=== PATIENT | female | born 1950 | race Caucasian/White ===

== ENCOUNTER 2019-06-24 00:05 | Inpatient (IN) ==
[2019-06-24] MEDS ORDERED: diazePAM 5 MG TABLET PO ONE (04:50)
[2019-06-24] MEDS ORDERED: Naloxone 0.4 MG/ML INJ IVP PRN (09:43)
[2019-06-24] MEDS ORDERED: Dextrose Gel 15 GM/37.5 ML TUBE PO PRN ×2 (09:51)
[2019-06-24] MEDS ORDERED: D5% in Water 1,000 ML IVC PRN (09:51)
[2019-06-24] MEDS ORDERED: *HR* Dextrose 50 % in Water (Syg) 50 ML SYRINGE IVP PRN (09:51)
--- NOTE | 2019-06-24 10:14 | Internal Med History&Physical ---
Date of Encounter: 06/24/19 Time of Encounter: 08:00 Internal Medicine - H&P: HPI Chief complaint: weakness History of present illness: Ms. Tobias is a 69 year old female with a PMHx of CAD s/p CABG (2007), DM2 with peripheral neuropathy, HTN and OA. She was transferred to our facility from [place] for a neurological assessment on account of weakness. Patient states that she went to see her chiropractor yesterday and developed intense muscle spasms and difficulty walking after placement of the TENS unit on her back and shoulders. 911 was called and patient was sent to [facility]. She states that prior to this she has been swimming regularly at her sister's ho use to help with weight loss and improve her A1c. She is scheduled for a right total knee replacement but surgery has been held until her A1c is below 8. Patient states she has had 2 falls in the last 2 weeks mostly related to loss of sensation in her feet and her right knee buckling from under her. She denies chest pain, shortness of breath, palpitations and lightheadedness when she rises from a seated position. Past Med Surg Social Fam HX - Past Medical History Medical history: coronary artery disease (s/p CABG in 2007), diabetes, hypertension Psychiatric history: no psych history - Past Surgical History Additional surgical history: Foot, sweat gland, - Social History Smoking Status: Never smoker Smokeless Tobacco Status: No Alcohol use: none Drug use: none - Family History Sister Name: Nini Age: 69 Family Member Ethnicity: Non- Twin of Family Member: Yes, Identical Living Status: Still Living Hx Family Cancer: Yes (Skin) Hx Family Endocrine Disorder: Yes (Diabetes) Hx Family Autoimmune Disorders: Yes (CREST disease) Internal Medicine - H&P: Meds Aspirin [Lo-Dose Aspirin EC] 81 mg PO DAILY 06/23/19 [History] Atorvastatin Calcium [Lipitor] 40 mg PO DAILY 06/23/19 [History] Baclofen [Lioresal] 10 mg PO BID 06/23/19 [History] Calcium Carbonate [Calcium] 600 mg PO DAILY 06/23/19 [History] Cholecalciferol (Vitamin D3) [Vitamin D] 5,000 unit PO DAILY 06/23/19 [History] Docusate Sodium [Stool Softener] 100 mg PO DAILY 06/23/19 [History] Furosemide [Lasix] 20 mg PO DAILY 06/23/19 [History] Insulin ASPART [Novolog Flexpen] 0 unit SQ TID PRN 06/23/19 [History] Insulin ASPART [Novolog Flexpen] 8 unit SQ TID 06/23/19 [History] Insulin Glargine,Hum.rec.anlog [Lantus Solostar] 50 unit SQ BID 06/23/19 [History] Levothyroxine Sodium [Levoxyl] 50 mcg PO DAILY 06/23/19 [History] Lisinopril/Hydrochlorothiazide [Lisinopril-Hctz 20-25 mg Tab] 1 each PO DAILY 06/23/19 [History] Meloxicam [Mobic] 15 mg PO DAILY 06/23/19 [History] Metformin HCl [Fortamet] 1,000 mg PO BID 06/23/19 [History] Metoprolol Succinate [Kapspargo Sprinkle] 100 mg PO DAILY 06/23/19 [History] Nystatin Cream [Mycostatin Cream] 1 appl TP BID 06/23/19 [History] Potassium Chloride [K-Tab ER] 20 meq PO DAILY 06/23/19 [History] Triamcinolone Acet 0.1% CRM [Kenalog] 1 appl TP BID 06/23/19 [History] Vitamin E 400 unit PO DAILY 06/23/19 [History] Allergy/AdvReac Type Severity Reaction Status Date / Time adhesive tape Allergy Rash Verified 06/23/19 19:18 lidocaine Allergy Rash Verified 06/23/19 19:18 Procaine [From Novocain] Allergy Rash Verified 06/23/19 19:18 All Systems PM: A 10-system review of systems was performed and is negative for pertinent findings except as documented above in the HPI. Review of systems: GENERAL: No fatigue, no fever, no chills HEENT: No rhinorrhea, No sore throat, No ear pain or discharge, No dysphagia or odynophagia PULMONARY: No cough, No chest pain, No Sputum production, No dyspnea on exertion CARDIOVASCULAR: No chest pain, no palpitations, No shortness of breath, No PND, No orthopnea GASTROINTESTINAL: No abdominal pain, No nausea, No vomiting, No constipation, No DIARRHEA, No hematemesis, No hematochezia MUSKULOSKELETAL: No edema, No swelling, Admits chonic right knee and lower back pain. INTEGUMENTARY: No new skin lesions NERVOUS SYSTEM: No Dizziness, No weakness, No slurred speech, No diplopia or blurred/ loss vision, No numbness, No tinglng sensation. Reports sharp shock- like pain that sometimes radiates from the back of her neck into her left arm. - Constitutional Vitals: Temp Pulse Resp BP Pulse Ox 36.5 C 66 18 140/63 98 06/24/19 07:16 06/24/19 07:16 06/24/19 07:16 06/24/19 07:16 06/24/19 07:16 Exam: GENERAL: Not in distress. Alert and Oriented HEENT: EOMI, PERRLA MOUTH: Moist oral mucosa NECK:No JVD, No lymph nodes. CHEST AND LUNGS: Normal breath sounds, no wheezes or crackles HEART: S1 and S2 normal, no murmurs ABDOMEN: Soft, nontender, no organomegaly SKIN: Normal color, no rahses, no lesions EXTREMITIES: No deformity, no edema, no tenderness, no joint swelling or clubbing NEUROLOGICAL: CN II-XII intact. Patient has lost sensation to both light and crude touch as well as proprioception in both feet. Exam negative for possible cerebellar defects. - Assessment and Plan (1) Weakness Current Visit: No Status: Acute Assessment and plan: Patient reports muscle spasms and weakness which she began experiencing yesterday. CT brain is unremarkable CT lumbar spine was negative for acute pathology CT cervical spine shows no acute bony abnormality. Multilevel degenerative disc disease and facet hypertrophic changes. There is mild to moderate multilevel bony central canal narrowing as well as neural foraminal narrowing. Has been seen by neuro: Recommend PT OT assessment. TSH, folate and vitamin B12 have been added to morning labs. MRI of the cervical, thoracic, and lumbar spine have also been ordered and are pending. (2) Radiculopathy Current Visit: Yes Status: Acute Assessment and plan: Patient reports shocklike pain that radiates from the back of her neck into her upper extremities. This is especially experienced left-sided. Has been evaluated by neuro MRI of the cervical spine has been ordered Qualifiers: Spinal region: cervical Qualified Code(s): M54.12 - Radiculopathy, cervical region (3) Diabetes mellitus Current Visit: Yes Status: Chronic Assessment and plan: Patient has diabetes on long-term insulin She is currently exercising by swimming and watching her diet and trying to obtain an A1c of less than so she can qualify for a right total knee replacement. We will resume her home dose of long-acting insulin. Accu-Cheks Insulin sliding scale Qualifiers: Diabetes mellitus type: type 2 Diabetes mellitus manager terminal insulin use: with manager terminal use Diabetes mellitus complication status: with neurologic complications Diabetes mellitus complication detail: with mononeuropathy Qualified Code(s): E11.41 - Type 2 diabetes mellitus with diabetic mononeuropathy; Z79.4 - intermodal owner operator truck driver (current) use of insulin (4) Hypertension Current Visit: Yes Status: Acute Assessment and plan: Blood pressure currently controlled. Resume home meds Qualifiers: Hypertension type: essential hypertension Qualified Code(s): I10 - Essential (primary) hypertension (5) Osteoarthritis Current Visit: Yes Status: Acute Assessment and plan: Patient has severe right knee osteoarthritis She is due for TKR but cannot have the procedure until her A1c is less than 8 Give when necessary analgesia. Qualifiers: Osteoarthritis location: knee Osteoarthritis type: primary Laterality: right Qualified Code(s): M17.11 - Unilateral primary osteoarthritis, right knee (6) Peripheral neuropathy Current Visit: Yes Status: Acute Assessment and plan: Patient has severe peripheral neuropathy from diabetes. On physical exam she had no sensation in both feet and also could not tell position sense. Recommend strict control of diabetes Qualifiers: Peripheral neuropathy type: polyneuropathy associated with underlying disease Qualified Code(s): G63 - Polyneuropathy in diseases classified elsewhere (7) Falls Current Visit: Yes Status: Acute Assessment and plan: Patient reported having fallen 2 times in the last 2 weeks are related to sensory loss in her feet as well as her right knee osteoarthritis Recommend PT OT Qualifiers: Encounter type: initial encounter Qualified Code(s): W19.XXXA - Unspecified fall, initial encounter (8) DVT prophylaxis Current Visit: Yes Status: Acute Assessment and plan: SQ Heparin. - Time Spent With Patient Total time spent is greater than 50% in coordination of care (as documented) at patient's floor/unit and/or counseling patient:
[2019-06-24] MEDS: Baclofen 10 MG TABLET PO SCH ×2 (10:42→19:58)
[2019-06-24] MEDS: Furosemide 20 MG TABLET PO SCH (11:39)
[2019-06-24] MEDS: Insulin LISPRO 300 UNITS/3 ML VIAL SQ SCH ×4 (11:40→16:50)
--- NOTE | 2019-06-24 11:52 | Neurology - Consult Note ---
<Osito Pinto - Last Filed: 06/24/19 11:48> Date of Encounter: 06/24/19 Time of Encounter: 11:49 Assessment and Plan (1) Weakness Current Visit: No Status: Acute Neurology seeing in c/s for acute onset b/l weakness, muscle spasms and chronic Lt shoulder radiculopathy Has h/o b/l knee arthritis and reports that she is needing surgery but unable to get surgery until A1C improves Patient reports that she fell in shower in late May. Has been having low back pain and B/L leg weakness since She went to the chiropractor yesterday but did not have manipulation. Upon placement of TENS unit she began having b/l leg spasm and was unable to walk She notes that this is new and that she had been swimming daily for the last week prior to yesterdays events CT cervical spine-no acute bony abnormality. Multilevel degenerative disc disease and facet hypertrophy changes; there is [id number] multilevel bony central canal narrowing as well as neural foraminal narrowing CT head unremarkable CT lumbar spine- negative for acute pathology Upon examination today she appears to have some left shoulder weakness and mild weakness in rt arm/shoulder and B/L legs. However, she give a poor effort overall during motor-strength exam. There are no long tract findings and she denies any urinary or fecal incontinence. No sensory level was identified. However, she does appear to have severe neuropathy on BLE and severely diminished proprioception. It is unclear at this time as to what the etiology of her sx may be. We will r/o transverse myelitis and or myelopathy as well as metabolic etiologies. MRI cervical, thoracic and lumbar spine are pending. TSH, Vitamin B12 and folate have been added to morning labs. We are recommending PT/OT cs as well. Further recommendation pending w/u. Neurology will continue to follow. (2) Radiculopathy Current Visit: Yes Status: Acute History of Present Illness Chief complaint: b/l leg weakness and Lt shoulder radiculopathy HPI: Ms. Tobias is a 69 year old female obesity, HTN, uncontrolled DM, and b/l knee arthritis. Neurology has been consulted to evaluate for left shoulder radiculopathy, and b/l leg weakness and muscle spasms. The patient reports that on June 09 she was in the shower and her knees suddenly buckled resulting in a fall. She was able to get herself up and ambulate the rest of the day without difficulty. She notes that the next morning she attempted to stand up and experienced a similar episode of bilateral knee buckling resulting in falls. Denies any head or neck trauma with falls. Since then she has been having low back pain. She reports that she needs b/l knee replacements and has been working on losing weight and improving her A1C. As such she has been swimming almost daily for the last week. She notes that shortly after swimming yesterday she went to a chiropractor appointment for an adjustment d/t ongoing back pain. During her appointment she had a TENS unit applied and reports that she immediately began having B/L spasms of the leg musculature and she has not been able to ambulate. She denies any dizziness, head/neck stiffness or pain, unilateral weakness (with the exception of chronic left shoulder weakness and pain), parasthesias, N/V/D, fevers, chills, weight-loss, chest pain or palpitations. As of my assessment this morning she notes that the spasms persist but have decreased in frequency. She notes that the spasms are exacerbated with ROM of legs. In regards to her Lt shoulder weakness and radicular sx she reports that this is chronic and no different than baseline. She does note that her right arm feels slightly weaker than normal but denies any radicular sx in right extremity. I have reviewed her CBC and Chemistry panel and they are within expected range. UA is mildly positive for UTI and urine cultures are pending. CT head unremarkable. CT Lumbar spine also unremarkable. CT of the cervical spine reveal no acute bony abnormality. There is findings of multilevel DDD and facet hypertrophy changes; with [id number] multilevel bony central canal narrowing as well as neural foraminal narrowing. Past Med Surg Social Fam HX - Past Medical History Medical history: diabetes, hypertension Psychiatric history: no psych history - Past Surgical History Additional surgical history: Foot, sweat gland, - Social History Smoking Status: Never smoker Smokeless Tobacco Status: No Alcohol use: none Drug use: none - Family History Sister Name: Nini Age: 69 Family Member Ethnicity: Non- Twin of Family Member: Yes, Identical Living Status: Still Living Hx Family Cancer: Yes (Skin) Hx Family Endocrine Disorder: Yes (Diabetes) Hx Family Autoimmune Disorders: Yes (CREST disease) Medications and Allergies Aspirin [Lo-Dose Aspirin EC] 81 mg PO DAILY 06/23/19 [History] Calcium Carbonate [Calcium] 600 mg PO DAILY 06/23/19 [History] Docusate Sodium [Stool Softener] 100 mg PO BID PRN 06/23/19 [History] Insulin ASPART [Novolog Flexpen] 8 unit SQ TID 06/23/19 [History] Insulin Glargine,Hum.rec.anlog [Lantus Solostar] 50 unit SQ BID 06/23/19 [History] Levothyroxine Sodium [Levoxyl] 50 mcg PO DAILY 06/23/19 [History] Lisinopril/Hydrochlorothiazide [Lisinopril-Hctz 20-25 mg Tab] 1 tab PO DAILY 06/23/19 [History] Potassium Chloride [K-Tab ER] 20 meq PO DAILY 06/23/19 [History] Vitamin E 400 unit PO DAILY 06/23/19 [History] Atorvastatin [Lipitor] 40 mg PO QPM 06/24/19 [History] Cholecalciferol (Vitamin D3) [Dialyvite Vitamin D] 5,000 units PO DAILY 06/24/19 [History] Metformin HCl [Glucophage] 1,000 mg PO BID 06/24/19 [History] Metoprolol Succinate [Toprol Xl] 100 mg PO DAILY 06/24/19 [History] Allergy/AdvReac Type Severity Reaction Status Date / Time adhesive tape Allergy Rash Verified 06/24/19 14:33 lidocaine Allergy Rash Verified 06/24/19 14:33 Procaine [From Novocain] Allergy Rash Verified 06/24/19 14:33 All Systems: The remainder of the systems were reviewed and are negative Review of Systems: REVIEW OF SYSTEMS GENERAL: Negative for any nausea, vomiting, fevers, chills, or weight loss, fatigue NEUROLOGIC: Negative for any blurry vision, blind spots, double vision, facial asymmetry, dysphagia, dysarthria, hemiparesis, hemisensory deficits, vertigo, ataxia Positive-acute bilateral leg weakness and chronic left shoulder radiculopathy and left shoulder weakness HEENT: Negative for any head trauma, neck trauma, neck stiffness, photophobia, phonophobia CARDIAC: Negative for any chest pain, dyspnea . No edema or palpitations GASTROINTESTINAL: Negative for any abdominal pain, nausea, vomiting GENITOURINARY: Negative for any dysuria, hematuria, incontinence. ENDOCRINE: Thyroid trouble, heat/cold intolerance, excessive sweating MUSCULOSKELETAL: Positive- bilateral knee pain secondary to arthritis. Decrease activity tolerance Physical Examination - Vital Signs Vital Signs: Initial Vital Signs Pulse Ox 93 06/24/19 04:09 - Exam Exam: Examination: General Examination: *CONSTITUTIONAL: Alert and oriented x3, no acute distress *GENERAL APPEARANCE OF PATIENT obese 69-year-old F, appears healthy and well groomed *EYES: pupils equal, round, reactive to light and accommodation, conjunctiva clear without masses or ulcerations, fundi normal. *CARDIOVASCULAR: mild dependent peripheral edema in bilateral legs, distal temperature normal, dorsalis pedis pulses normal. Refer to vital signs * MUSCULOSKELETAL: *GAIT AND STATION: Declined ambulation *ASSESSMENT OF MUSCLE STRENGTH IN THE UPPER AND LOWER EXTREMITIES bilateral deltoid, bicep, tricep, software development coordinator strength, hip flexors ,anterior tibialis, dorsoflexion of the foot 3/5; difficulty with motor strength exam as the patient did not put forth effort. She displayed left shoulder weakness but also poor effort on exam. She was able to use her b/l arms and legs to assist her in adjusting herself in bed and roll over *MUSCLE TONE IN THE UPPER AND LOWER EXTREMITIES normal. No abnormal movem ents, fasciculations or atrophy identified. Neurological: *ORIENTATION to person, situation, time and place *LANGUAGE AND FUNCTION no significant aphasia or dysarthia was noted. *ATTENTION AND CONCENTRATION are normal *LANGUAGE FUNCTION no significant aphasia or dysarthia was noted. *FUND OF KNOWLEDGE aware of current events, past history, vocabulary *MENTAL attention span and concentration normal. *CN II optic fundi were normal, no papilledema noted. *CN III,IV, PERRLA extraocular eye movements were full, no nystagmus and no ptosis noted. *CN V shows normal sensation and jaw opens symmetrically. *CN VII shows normal facial movement symmetrically, upper and lower bilaterally. *CN VIII shows no significant hearing loss on exam *CN IX-X palate elevated symmetrically *CN XI normal strength in the sternocleidomastoid muscles, symmetrical shoulder shrugging. *CN XII tongue protruded in the midline, with normal strength and movement. *SENSORY EXAMINATION light touch intact *REFLEXES: deep tendon reflexes were diminished diffusely, no pathological reflexes were noted. *CEREBELLAR TESTING normal finger to nose, heel/knee/couch *PAIN LEVEL 4/10 with intermittent b/l leg spams exacerbated by ROM Results - Diagnostic Findings Additional findings: CT/CT head/brain wo con IMPRESSION: No acute intracranial abnormality. CT/CT cervical spine wo con IMPRESSION: No acute bony abnormality. Multilevel degenerative disc disease and facet hypertrophy changes; there is [id number]-hzparsik multilevel bony central canal narrowing as well as neural foraminal narrowing. CT/CT lumbar spine wo con IMPRESSION: No acute lumbar spine abnormality. Consult Discharge Plan - Plan Referrals: NONE,PCP [Primary Care Provider] - <Michael Velazquez - Last Filed: 06/24/19 17:11> Date of Encounter: 06/24/19 Assessment and Plan (1) Weakness Current Visit: No Status: Acute I have personally performed a [id number] assessment of the patient and have reviewed the PA/MARINE PIPEFITTER note. My impressions are as follows: The case was discussed with the DAY WORKER. I agree with his assessment and plan as stated above. At this juncture I am not absolutely convinced that this presentation is due to a nervous system condition. My gut suspicion is that this is all due to myofascial/mechanical etiologies. However I would like to rule out the possibility of a transverse myelitis, or the spinal cord pathology. I am doubtful of a spinal cord infarct. I am doubtful of any other metabolic etiology for this presentation. I would recommend checking CPK levels to rule out against statin-induced myopathy. She does have significant sensorimotor polyneuropathy likely due to diabetes. This does not fact place her at risk for falls due to sensory ataxia. We will reevaluate her tomorrow after assessing the MRI results. I did not find any lateralizing deficits that aroused suspicions for cerebral infarct. I did review the CT of the head which was unremarkable. (2) Radiculopathy Current Visit: Yes Status: Acute Qualifiers: Spinal region: cervical Qualified Code(s): M54.12 - Radiculopathy, cervical region History of Present Illness HPI: The chart was reviewed, the patient was seen and examined along with the DAY WORKER. I agree with his documentation of the history of present illness as above. All Systems: The remainder of the systems were reviewed and are negative Review of Systems: The balance of the systems review is negative. Physical Examination - Vital Signs Vital Signs: Initial Vital Signs Pulse Ox 93 06/24/19 04:09 - Exam Exam: I have personally performed a [id number] assessment of the patient and have reviewed the PA/MARINE PIPEFITTER note. My impressions are as follows: Patient was able to raise both legs off the bed against gravity and hold. Strength of the ankle dorsiflexors was 4/5 symmetrically. Sensory exam finds decreased sensation to pinprick distal to proximal gradient, proprioception is also diminished in the small joints distally in the feet. Otherwise I agree with the neurologic examination as documented above.
[2019-06-24 12:50] LABS: Thyroid Stimulating Hormone 1.531 mcIU/mL (0.340-5.600)
[2019-06-24 13:01] LABS: Folate 13.3 ng/mL (3.0-16.0)
[2019-06-24] MEDS: *HR* Heparin 5,000 UNIT/ML VIAL SQ SCH ×2 (13:45→22:42)
[2019-06-24] MEDS: Insulin DETEMIR 100 UNIT/ML X5UNITS SQ SCH (22:42)
[2019-06-25] MEDS: *HR* Heparin 5,000 UNIT/ML VIAL SQ SCH ×3 (05:28→21:56)
--- NOTE | 2019-06-25 07:41 | Internal Med Progress Note ---
Hospitalist Progress Note - Encounter Date of Encounter: 06/25/19 Time of Encounter: 08:00 - Subjective Interval History: No acute events overnight - Exam Vitals: Temp Pulse Resp BP Pulse Ox 98.1 F 69 17 116/72 95 06/25/19 04:13 06/25/19 04:13 06/25/19 04:13 06/25/19 04:13 06/25/19 04:13 Exam: GENERAL: Not in distress. Alert and Oriented HEENT: EOMI, PERRLA MOUTH: Moist oral mucosa NECK:No JVD, No lymph nodes. CHEST AND LUNGS: Normal breath sounds, no wheezes or crackles HEART: S1 and S2 normal, no murmurs ABDOMEN: Soft, nontender, no organomegaly SKIN: Normal color, no rahses, no lesions EXTREMITIES: No deformity, no edema, no tenderness, no joint swelling or clubbing NEUROLOGICAL: CN II-XII intact. Patient has lost sensation to both light and crude touch as well as proprioception in both feet. Exam negative for possible cerebellar defects. - Assessment and Plan (1) Weakness Current Visit: Yes Status: Acute Assessment and Plan: Patient reports muscle spasms and severe lower extremity weakness bilaterally MRI cervical and lumbar spine showed sever L2- L3 stenosis and C4-C5 myelomalacia or edema Spine surgery consulted and appreciate recs (2) Preoperative clearance Current Visit: Yes Status: Acute Assessment and Plan: Pt has good functional status at baseline with METS>4 . Will obtain EKG to assess for any abnormalities patient has no reported valvular disease/ symptomatic arrhythmia Does have history of CAD s/p CABG. Will obtain echo and if normal, no further cardiovascular testing indicated prior to surgery (3) Radiculopathy Current Visit: Yes Status: Acute Assessment and Plan: Patient reports shocklike pain that radiates from the back of her neck into her upper extremities. This is especially experienced left-sided. Has been evaluated by neuro MRI of the cervical spine has been ordered (4) Diabetes mellitus Current Visit: Yes Status: Chronic Assessment and Plan: Patient has diabetes on long-term insulin She is currently exercising by swimming and watching her diet and trying to obtain an A1c of less than so she can qualify for a right total knee replacement. We will resume her home dose of long-acting insulin. Accu-Cheks Insulin sliding scale (5) Hypertension Current Visit: Yes Status: Acute Assessment and Plan: Blood pressure currently controlled. Resume home meds (6) Osteoarthritis Current Visit: Yes Status: Acute Assessment and Plan: Patient has severe right knee osteoarthritis She is due for TKR but cannot have the procedure until her A1c is less than 8 Give when necessary analgesia. (7) Peripheral neuropathy Current Visit: Yes Status: Acute Assessment and Plan: Patient has severe peripheral neuropathy from diabetes. On physical exam she had no sensation in both feet and also could not tell position sense. Recommend strict control of diabetes (8) Falls Current Visit: Yes Status: Acute Assessment and Plan: Patient reported having fallen 2 times in the last 2 weeks are related to sensory loss in her feet as well as her right knee osteoarthritis Recommend PT OT (9) DVT prophylaxis Current Visit: Yes Status: Acute Assessment and Plan: SQ Heparin. - Time Spent with Patient Total time spent is greater than 50% in coordination of care (as documented) at patient's floor/unit and/or counseling patient: Internal Medicine: Result - Labs CBC & Chem 7: 06/25/19 09:35 06/25/19 09:35 - Impressions Impressions Cervical Spine MRI 06/24/19 11:45 IMPRESSION: Multilevel cervical spondylosis results in multilevel moderate to severe spinal canal stenosis which is most pronounced at C4-C5. Focal area of abnormal signal in the right cervical cord at the C4-C5 level could relate to myelomalacia or edema. Flattening of the cervical cord at multiple levels. Multilevel moderate to severe neural foraminal narrowing. D/ / Lenny Sessions / Lenny Mims Interpreting Provider: Lenny Mims Lumbar Spine MRI 06/24/19 11:45 IMPRESSION: Multilevel lumbar spondylosis results in multilevel spinal canal stenosis which is most pronounced and moderate at L2-L3. Multilevel moderate to severe neural foraminal narrowing. D/ / Lenny Sessions / Lenny Mims Interpreting Provider: Lenny Mims Thoracic Spine MRI 06/24/19 11:45 IMPRESSION: Mild multilevel degenerative disease in the thoracic spine results in mild multilevel spinal canal stenosis. No severe thoracic spinal canal stenosis at any level. The thoracic spinal cord is normal in size and signal. D/ / Lenny Sessions / Lenny Sessions Interpreting Provider: Lenny Mims Consult Discharge Plan - Plan Referrals: NONE,PCP [Primary Care Provider] - (3) Radiculopathy Qualifiers: Spinal region: cervical Qualified Code(s): M54.12 - Radiculopathy, cervical region (4) Diabetes mellitus Qualifiers: Diabetes mellitus type: type 2 Diabetes mellitus residential insulin use: with residential use Diabetes mellitus complication status: with neurologic complications Diabetes mellitus complication detail: with mononeuropathy Qualified Code(s): E11.41 - Type 2 diabetes mellitus with diabetic mononeuropathy; Z79.4 - FPC (current) use of insulin (5) Hypertension Qualifiers: Hypertension type: essential hypertension Qualified Code(s): I10 - Essential (primary) hypertension (6) Osteoarthritis Qualifiers: Osteoarthritis location: knee Osteoarthritis type: primary Laterality: right Qualified Code(s): M17.11 - Unilateral primary osteoarthritis, right knee (7) Peripheral neuropathy Qualifiers: Peripheral neuropathy type: polyneuropathy associated with underlying disease Qualified Code(s): G63 - Polyneuropathy in diseases classified elsewhere (8) Falls Qualifiers: Encounter type: initial encounter Qualified Code(s): W19.XXXA - Unspecified fall, initial encounter
[2019-06-25] MEDS: Vitamin E 200 UNIT (90MG) CAPSULE PO SCH (08:30)
[2019-06-25] MEDS: Metoprolol XL (24 HR) Succ 50 MG TAB.ER.24H PO SCH (08:31)
[2019-06-25] MEDS: Cholecalciferol (D-3) 1,000 UNIT (25MCG) TABLET PO SCH ×2 (08:31→08:32)
[2019-06-25] MEDS: Furosemide 20 MG TABLET PO SCH (08:32)
[2019-06-25] MEDS: Aspirin Enteric Coated 81 MG Tablet PO SCH (08:32)
[2019-06-25] MEDS: Baclofen 10 MG TABLET PO SCH ×2 (08:32→21:56)
[2019-06-25] MEDS: Insulin DETEMIR 100 UNIT/ML X5UNITS SQ SCH ×2 (08:36→21:56)
[2019-06-25] MEDS: Insulin LISPRO 300 UNITS/3 ML VIAL SQ SCH ×6 (08:37→17:15)
[2019-06-25] MEDS ORDERED: NON-FORMULARY MEDICATION 1 EACH EACH (Metoprolol Succinate [Toprol Xl] 100 MG) PO SCH (09:00)
[2019-06-25] MEDS ORDERED: Cholecalciferol (D-3) 1,000 UNIT (25MCG) TABLET PO SCH (09:00)
--- NOTE | 2019-06-25 09:46 | Neurology Progress Note ---
<Osito Pinto - Last Filed: 06/25/19 09:39> Date of Encounter: 06/25/19 Time of Encounter: 09:39 Assessment and Plan (1) Weakness Current Visit: Yes Status: Acute The patient is seen in follow-up for acute onset of bilateral leg weakness, muscle spasms and chronic left shoulder radiculopathy. Clinically, she remained stable without further declining condition overnight. She continues to deny urinary or fecal incontinence. There have been no changes to the neurological exam, left arm radiculopathy and weakness persists. Of note, she reports that the leg spasms have significantly improved overnight. An MRI of the cervical thoracic and lumbar spine was completed yesterday revealing: DYW-rcqglyvg-0 level cervical spondylosis resulting in multilevel moderate to severe spinal canal stenosis which is most pronounced at C4-C5. Focal area of abnormal signal in the right cervical cord at the C4-C5 level could relate to myelomalacia or edema. Flattening of the cervical cord at multiple levels is seen. Multilevel moderate to severe neural foraminal narrowing also seen. BNL-aqxchtvk-wsvz multilevel generative disease of the thoracic spine resulting mild multilevel spinal canal stenosis. No severe thoracic spinal canal stenosis at any level. Thoracic spinal cord is normal in size and signal. JIN-uggzcy-zntpoxrdsc lumbar spondylosis resulting in multilevel spinal canal stenosis which is most pronounced and moderate at L2-L3. Multilevel moderate to severe neural foraminal narrowing. As a result of the MRI imaging findings orthopedic surgery has been consulted. Further recommendations pending orthopedic consultation; Recommendations are appreciated. (2) Radiculopathy Current Visit: Yes Status: Acute Qualifiers: Spinal region: cervical Qualified Code(s): M54.12 - Radiculopathy, cervical region Subjective Principal diagnosis: b/l leg weakness and Lt shoulder radiculopathy Interval history: The patient was seen in follow-up for B/L leg weakness and LT shoulder radiculopathy. She continues to endorse left shoulder/arm radicular pain and weakness. Also, she is endorsing generalized weakness overall. She notes that the muscle spasms in her bilateral legs have improved. She denies any urinary or fecal incontinence. Currently, she remained stable without any worsening of her neurological deficits overnight. I discussed the MRI findings of the cervical thoracic and lumbar spine including the severe cervical stenosis and discussed the need for orthopedic consultation. The patient verbalizes understanding denies any further questions. Objective - Constitutional Vitals: Temp Pulse Resp BP Pulse Ox 97.9 F 80 17 155/67 92 06/25/19 07:47 06/25/19 07:47 06/25/19 07:47 06/25/19 07:47 06/25/19 07:47 Exam: Examination: General Examination: *CONSTITUTIONAL: Alert and oriented x3, no acute distress *GENERAL APPEARANCE OF PATIENT obese 69-year-old F, appears healthy and well groomed *EYES: pupils equal, round, reactive to light and accommodation, conjunctiva clear *CARDIOVASCULAR: No peripheral edema, distal temperature normal, dorsalis pedis pulses normal. Refer to vital signs * MUSCULOSKELETAL: *GAIT AND STATION: Deferred due to risk for falls *ASSESSMENT OF MUSCLE STRENGTH IN THE UPPER AND LOWER EXTREMITIES the left deltoid and biceps is 3/5 otherwise, right triceps is 4/5 right radio sportscaster strength also 4/5. Left hip flexor, anterior tibialis and dorsiflexion of the left foot is 4/5. Right deltoid, bicep, tricep, radio sportscaster strength, hip flexor, anterior tibialis and dorsiflexion 4/5 *MUSCLE TONE IN THE UPPER AND LOWER EXTREMITIES normal. No abnormal movements, fasciculations or atrophy identified. Neurological: *ORIENTATION to person, situation, time and place *LANGUAGE AND FUNCTION no significant aphasia or dysarthia was noted. *ATTENTION AND CONCENTRATION are normal *LANGUAGE FUNCTION no significant aphasia or dysarthia was noted. *FUND OF KNOWLEDGE aware of current events, past history, vocabulary *MENTAL attention span and concentration normal. *CN II optic fundi were normal, no papilledema noted. *CN III,IV, PERRLA extraocular eye movements were full, no nystagmus and no ptosis noted. *CN V shows normal sensation and jaw opens symmetrically. *CN VII shows normal facial movement symmetrically, upper and lower bilaterally. *CN VIII shows no significant hearing loss on exam *CN IX-X palate elevated symmetrically *CN XI normal strength in the sternocleidomastoid muscles, symmetrical shoulder shrugging. *CN XII tongue protruded in the midline, with normal strength and movement. *SENSORY EXAMINATION light touch intact *REFLEXES: deep tendon reflexes were diminished diffusely, no pathological reflexes were noted. *CEREBELLAR TESTING normal finger to nose, heel/knee/couch *PAIN LEVEL 0/10 Results - Laboratory Findings Abnormal lab findings: Abnormal lab results POC Glucose 186 mg/dL (70-99) H 06/25/19 07:45 Consult Discharge Plan - Plan Referrals: NONE,PCP [Primary Care Provider] - <Michael Velazquez - Last Filed: 06/25/19 16:01> Date of Encounter: 06/25/19 Assessment and Plan (1) Weakness Current Visit: Yes Status: Acute I have personally performed a hgwa-er-[id number] assessment of the patient and have reviewed the PA/RIGHT OF WAY CLEARER note. My impressions are as follows: Ultimately I believe that this patient has encountered a central cord like syndrome as a result of the previous falls. More than likely she may have experience some whiplash phenomenon involving the cervical spine. Those individuals who have significant cervical stenosis him more prone to develop a central cord syndrome as a result of whiplash injuries. This generally presents is more distal weakness in the upper extremities particularly the hands. However I believe that she also has lower extremity weakness as a result of the cervical stenosis and compression of the more peripheral fibers. I agree with decompression for seizure of the cervical spine. We will continue to follow. 25 minutes was spent with this patient today of which greater than 50% of that time was spent in kuji-lz-jgjk contact which consisted of counseling, discussing MRI results and coordinating care. (2) Radiculopathy Current Visit: Yes Status: Acute Qualifiers: Spinal region: cervical Qualified Code(s): M54.12 - Radiculopathy, cervical region Subjective Interval history: The chart was reviewed, patient was seen and examined independently. The case was discussed with Osito. I agree with his assessment of the subjective history as documented above. I did review the MRI scans of the cervical thoracic and lumbar spine. The MRI reveals severe cervical spinal stenosis at the C4-C5 level, and moderate to severe at the C6-C7 level. There is also an area of apparent myelomalacia at the C4-C5 level in the right spinal cord. Objective - Constitutional Vitals: Temp Pulse Resp BP Pulse Ox 99.0 F 69 16 132/74 95 06/25/19 15:49 06/25/19 15:49 06/25/19 15:49 06/25/19 15:49 06/25/19 15:49 Exam: I have personally performed a tqii-ns-peaz assessment of the patient and have reviewed the PA/RIGHT OF WAY CLEARER note. My impressions are as follows: I agree with the neurologic examination as documented above. Results - Laboratory Findings CBC and BMP: 06/25/19 09:35 06/25/19 09:35 Abnormal lab findings: Abnormal lab results BUN/Creatinine Ratio 27 (6-26) H 06/25/19 09:35 Glucose 237 mg/dL (70-105) H 06/25/19 09:35 POC Glucose 186 mg/dL (70-99) H 06/25/19 07:45
[2019-06-25 10:05] LABS: Basophils % 0.3 %; Eosinophils # 0.2 K/mcL (0.0-0.6); Eosinophils % 3.6 %; Hematocrit 41.8 % (35.3-44.9); Hemoglobin 13.3 g/dL (11.5-15.4); Immature Granulocytes % 0.5 % (0-4); Lymphocytes # 1.8 K/mcL (0.6-4.6); Lymphocytes % 30.5 %; Mean Corpuscular HGB Conc 31.8 g/dL (31.6-35.5); Mean Corpuscular Volume 94.4 fL (83.0-100.0); Mean Platelet Volume 10.4 fL (9.4-12.4); Monocytes # 0.7 K/mcL (0.0-1.3); Monocytes % 11.9 %; Neutrophils # 3.2 K/mcL (1.6-8.9); Platelet Count 219 K/mcL (140-400); Red Blood Count 4.43 M/mcL (3.82-4.97); Red Cell Distribution Width 13.2 % (11.5-14.5); Segmented Neutrophils % 53.2 %
[2019-06-25 10:08] LABS: Prothrombin Time 11.6 Seconds (9.4-12.1)
[2019-06-25 10:20] LABS: BUN/Creatinine Ratio 27 (6-26); Blood Urea Nitrogen 20 mg/dL (8-23); Carbon Dioxide 28 mEq/L (23-29); Chloride 103 mEq/L (98-107); Glucose 237 mg/dL (70-105); Osmolality,Calculated 296 (280-300); Sodium 138 mEq/L (136-145); eGFR For African Americans > 60 (> 60); eGFR For Non-African Americans > 60 (> 60)
--- NOTE | 2019-06-25 12:00 | Orthopedic Consult Note ---
Date of Encounter: 06/25/19 Time of Encounter: 12:30 Assessment and Plan (1) Cervical myelopathy Current Visit: Yes Status: Chronic (2) Cervical radiculopathy Current Visit: Yes Status: Chronic (3) Cervical stenosis of spine Current Visit: Yes Status: Chronic History of Present Illness Chief complaint: weakness HPI: Ms. Tobias is a 69 year old female presenting to [facility] with c/o falls and inability to ambulate. She states that 06/09 she fell in the shower planting her right leg and pivoting with subsequent inability to get up. She states that she hit her head several times on the bath while trying to get up. She states that since then she has had significant difficulty getting around. She states she sees a chiropractor weekly for adjustments, but that her recent most visits have been no different than usual. She admits to having an "arthritic knee" with "arthritis all through out my body". She states she went to see an orthopedic surgeon recently about her right knee who recommended knee replacement, but required that her BMI be lower to encourage improved outcomes. She states since then she has been doing physical therapy and has been staying with her sister who has a pool and had been feeling better until a few days ago when she went to see her chiropractor who placed estim on her legs and she spasmed so much that she had to have a rescue team help her out of the chair and since has not been able to ambulate normally since. She does admit to difficulty with ambulation over the past 1-2 years secondary to her right knee. She states it often "gives out". She states she put herself on a cane over that time as well to improve stability and mobility. Of note, she has an identical twin at bedside who states she has CREST syndrome. Patient herself denies any history of arthropathy other than arthritis and reports she was tested in the remote past for rheumatoid arthritis. She denies history of connective tissue disorder. On exam patient lying supine in bed. States must stay at certain angle or she gets "electric shocks" through her body. Patient alert and oriented x 3. Generalized weakness noted Resisted shoulder shrug sustained bilaterally and symmetrically Right shoulder abduction 3/5, left 2/5, Flexion right full, left appx 45 degrees AROM with full PROM. Elbow motion full bilaterally Wrist motion full bilaterally Unable to fully extend fingers bilaterally Able to flex fingers and thumbs fully and form fist bilaterally Water Taxi Captain strength notably weakened to left hand. Finger motion uncoordinated and patient moves hand as in a glove rather than with individual finger motion overall. Sensation appears intact upper extremities Radial pulses 2+ bilaterally Cap refill <2 sec LLE demonstrates vericose veins with well healed medial calf incision ---- per patient for grafting/bypass. No tenderness to palpation bilateral LE. Hip motion intact bilaterally KNee motion intact bilaterally Ankle motion intact bilaterally Toe motion decreased bilaterally with clawing of toes. Sensation appears intact to b/l LE DP pulses 2+ bilaterally MRI reviewed demonstrating: Multilevel cervical spondylosis results in multilevel moderate to severe spinal canal stenosis which is most pronounced at C4-C5. Focal area of abnormal signal in the right cervical cord at the C4-C5 level could relate to myelomalacia or edema. Flattening of the cervical cord at multiple levels. Multilevel moderate to severe neural foraminal narrowing. Case reviewed with Dr. Lugo with recommendation for cervical decompression and 3 level fusion. Case planned for Sunday Plan reviewed with patient and sister who verbalized understanding. Dr. Lugo will meet with patient later today to further discuss planned inte rvention. Thank you for this consultation. Please reach out with any concerns regarding patient's orthopedic health. Past Med Surg Social Fam HX - Past Medical History Medical history: coronary artery disease (s/p CABG in 2007), diabetes, hypertension Psychiatric history: no psych history - Past Surgical History Additional surgical history: Foot, sweat gland, - Social History Smoking Status: Never smoker Smokeless Tobacco Status: No Alcohol use: none Drug use: none - Family History Sister Name: Nini Age: 69 Family Member Ethnicity: Non- Twin of Family Member: Yes, Identical Living Status: Still Living Hx Family Cancer: Yes (Skin) Hx Family Endocrine Disorder: Yes (Diabetes) Hx Family Autoimmune Disorders: Yes (CREST disease) Medications and Allergies Aspirin [Lo-Dose Aspirin EC] 81 mg PO DAILY 06/23/19 [History] Calcium Carbonate [Calcium] 600 mg PO DAILY 06/23/19 [History] Docusate Sodium [Stool Softener] 100 mg PO BID PRN 06/23/19 [History] Insulin ASPART [Novolog Flexpen] 8 unit SQ TID 06/23/19 [History] Insulin Glargine,Hum.rec.anlog [Lantus Solostar] 50 unit SQ BID 06/23/19 [History] Levothyroxine Sodium [Levoxyl] 50 mcg PO DAILY 06/23/19 [History] Lisinopril/Hydrochlorothiazide [Lisinopril-Hctz 20-25 mg Tab] 1 tab PO DAILY 06/23/19 [History] Potassium Chloride [K-Tab ER] 20 meq PO DAILY 06/23/19 [History] Vitamin E 400 unit PO DAILY 06/23/19 [History] Atorvastatin [Lipitor] 40 mg PO QPM 06/24/19 [History] Cholecalciferol (Vitamin D3) [Dialyvite Vitamin D] 5,000 units PO DAILY 06/24/19 [History] Metformin HCl [Glucophage] 1,000 mg PO BID 06/24/19 [History] Metoprolol Succinate [Toprol Xl] 100 mg PO DAILY 06/24/19 [History] Allergy/AdvReac Type Severity Reaction Status Date / Time adhesive tape Allergy Rash Verified 06/24/19 14:33 lidocaine Allergy Rash Verified 06/24/19 14:33 Procaine [From Novocain] Allergy Rash Verified 06/24/19 14:33 All Systems Reviewed: The remainder of the systems were reviewed and are negative Physical Exam - Constitutional Vitals: Temp Pulse Resp BP Pulse Ox 97.8 F 76 17 121/69 93 06/25/19 11:10 06/25/19 11:10 06/25/19 11:10 06/25/19 11:10 06/25/19 11:10 Results - Labs Result Diagrams: 06/25/19 09:35 06/25/19 09:35 Labs: Abnormal lab results BUN/Creatinine Ratio 27 (6-26) H 06/25/19 09:35 Glucose 237 mg/dL (70-105) H 06/25/19 09:35 POC Glucose 186 mg/dL (70-99) H 06/25/19 07:45 H & H 06/25/19 Range/Units 09:35 Hgb 13.3 (11.5-15.4) g/dL Hct 41.8 (35.3-44.9) % All other labs normal. Consult Discharge Plan - Plan Referrals: NONE,PCP [Primary Care Provider] -
[2019-06-25] MEDS ORDERED: Perflutren Lipid Microsphere 1.3 ML in 0.9 % Sodium Chloride 8.7 ML IVP ONE (18:10)
[2019-06-26 04:57] LABS: Basophils % 0.4 %; Eosinophils # 0.2 K/mcL (0.0-0.6); Eosinophils % 3.2 %; Hematocrit 42.1 % (35.3-44.9); Hemoglobin 13.3 g/dL (11.5-15.4); Immature Granulocytes % 0.3 % (0-4); Lymphocytes # 2.3 K/mcL (0.6-4.6); Lymphocytes % 32.6 %; Mean Corpuscular HGB Conc 31.6 g/dL (31.6-35.5); Mean Corpuscular Volume 94.8 fL (83.0-100.0); Mean Platelet Volume 10.5 fL (9.4-12.4); Monocytes # 0.9 K/mcL (0.0-1.3); Monocytes % 12.1 %; Neutrophils # 3.6 K/mcL (1.6-8.9); Platelet Count 211 K/mcL (140-400); Red Blood Count 4.44 M/mcL (3.82-4.97); Red Cell Distribution Width 13.2 % (11.5-14.5); Segmented Neutrophils % 51.4 %; White Blood Count 7.1 K/mcL (4.3-11.1)
[2019-06-26 05:09] LABS: BUN/Creatinine Ratio 33 (6-26); Blood Urea Nitrogen 24 mg/dL (8-23); Calcium 9.3 mg/dL (8.6-10.3); Carbon Dioxide 28 mEq/L (23-29); Chloride 103 mEq/L (98-107); Glucose 236 mg/dL (70-105); Magnesium 2.1 mg/dL (1.6-2.6); Osmolality,Calculated 298 (280-300); Phosphorous 3.2 mg/dL (2.7-4.5); Potassium 3.7 mEq/L (3.5-5.1); Sodium 138 mEq/L (136-145); eGFR For African Americans > 60 (> 60); eGFR For Non-African Americans > 60 (> 60)
[2019-06-26] MEDS: *HR* Heparin 5,000 UNIT/ML VIAL SQ SCH ×3 (06:21→20:32)
--- NOTE | 2019-06-26 07:23 | Internal Med Progress Note ---
Hospitalist Progress Note - Encounter Date of Encounter: 06/26/19 Time of Encounter: 07:23 - Subjective Interval History: No acute events overnight - Exam Vitals: Temp Pulse Resp BP Pulse Ox 98.6 F 65 16 107/70 94 06/25/19 23:58 06/26/19 04:15 06/26/19 04:15 06/26/19 04:15 06/26/19 04:15 Exam: GENERAL: Not in distress. Alert and Oriented HEENT: EOMI, PERRLA MOUTH: Moist oral mucosa NECK:No JVD, No lymph nodes. CHEST AND LUNGS: Normal breath sounds, no wheezes or crackles HEART: S1 and S2 normal, no murmurs ABDOMEN: Soft, nontender, no organomegaly SKIN: Normal color, no rahses, no lesions EXTREMITIES: No deformity, no edema, no tenderness, no joint swelling or clubbing NEUROLOGICAL: CN II-XII intact. Patient has lost sensation to both light and crude touch as well as proprioception in both feet. Exam negative for possible cerebellar defects. - Assessment and Plan (1) Weakness Current Visit: Yes Status: Acute Assessment and Plan: Patient reports muscle spasms and severe lower extremity weakness bilaterally MRI cervical and lumbar spine showed sever L2- L3 stenosis and C4-C5 myelomalacia or edema Spine surgery consulted and plan for cervical decompression and spine fusion on sunday (2) Preoperative clearance Current Visit: Yes Status: Acute Assessment and Plan: Pt has good functional status at baseline with METS>4 . Does have history of CAD s/p CABG. EKG showed baseline ST segment depression Obtain 2D echo, cardiology consult for clearance (3) Radiculopathy Current Visit: Yes Status: Acute Assessment and Plan: Patient reports shocklike pain that radiates from the back of her neck into her upper extremities. This is especially experienced left-sided. Has been evaluated by neuro MRI of the cervical spine has been ordered (4) Diabetes mellitus Current Visit: Yes Status: Chronic Assessment and Plan: Patient has diabetes on long-term insulin She is currently exercising by swimming and watching her diet and trying to obtain an A1c of less than so she can qualify for a right total knee replacement. We will resume her home dose of long-acting insulin. Accu-Cheks Insulin sliding scale (5) Hypertension Current Visit: Yes Status: Acute Assessment and Plan: Blood pressure currently controlled. Resume home meds (6) Osteoarthritis Current Visit: Yes Status: Acute Assessment and Plan: Patient has severe right knee osteoarthritis She is due for TKR but cannot have the procedure until her A1c is less than 8 Give when necessary analgesia. (7) Peripheral neuropathy Current Visit: Yes Status: Acute Assessment and Plan: Patient has severe peripheral neuropathy from diabetes. On physical exam she had no sensation in both feet and also could not tell position sense. Recommend strict control of diabetes (8) Falls Current Visit: Yes Status: Acute Assessment and Plan: Patient reported having fallen 2 times in the last 2 weeks are related to sensory loss in her feet as well as her right knee osteoarthritis Recommend PT OT (9) DVT prophylaxis Current Visit: Yes Status: Acute Assessment and Plan: SQ Heparin. - Time Spent with Patient Total time spent is greater than 50% in coordination of care (as documented) at patient's floor/unit and/or counseling patient: Internal Medicine: Result - Labs CBC & Chem 7: 06/26/19 04:10 06/26/19 04:10 Labs: Short CBC 06/25/19 06/26/19 Range/Units 09:35 04:10 WBC 6.0 7.1 (4.3-11.1) K/mcL Hgb 13.3 13.3 (11.5-15.4) g/dL Hct 41.8 42.1 (35.3-44.9) % Plt Count 219 211 (140-400) K/mcL Neutrophils # 3.2 3.6 (1.6-8.9) K/mcL BMP 06/25/19 06/26/19 09:35 04:10 Sodium 138 138 Potassium 4.0 3.7 Chloride 103 103 Carbon Dioxide 28 28 BUN 20 24 H Creatinine 0.74 0.73 Glucose 237 H 236 H Calcium 9.0 9.3 - ABG Interpretation ABG results: PT/INR, D-dimer PT 11.6 Seconds (9.4-12.1) 06/25/19 09:35 Consult Discharge Plan - Plan Referrals: NONE,PCP [Primary Care Provider] - (3) Radiculopathy Qualifiers: Spinal region: cervical Qualified Code(s): M54.12 - Radiculopathy, cervical region (4) Diabetes mellitus Qualifiers: Diabetes mellitus type: type 2 Diabetes mellitus intelligence officer insulin use: with intelligence officer use Diabetes mellitus complication status: with neurologic complications Diabetes mellitus complication detail: with mononeuropathy Qualified Code(s): E11.41 - Type 2 diabetes mellitus with diabetic mononeuropathy; Z79.4 - direct support staff member (current) use of insulin (5) Hypertension Qualifiers: Hypertension type: essential hypertension Qualified Code(s): I10 - Essential (primary) hypertension (6) Osteoarthritis Qualifiers: Osteoarthritis location: knee Osteoarthritis type: primary Laterality: right Qualified Code(s): M17.11 - Unilateral primary osteoarthritis, right knee (7) Peripheral neuropathy Qualifiers: Peripheral neuropathy type: polyneuropathy associated with underlying disease Qualified Code(s): G63 - Polyneuropathy in diseases classified elsewhere (8) Falls Qualifiers: Encounter type: initial encounter Qualified Code(s): W19.XXXA - Unspecified fall, initial encounter
[2019-06-26] MEDS: Metoprolol XL (24 HR) Succ 50 MG TAB.ER.24H PO SCH (08:01)
[2019-06-26] MEDS: Cholecalciferol (D-3) 1,000 UNIT (25MCG) TABLET PO SCH (08:01)
[2019-06-26] MEDS: Vitamin E 200 UNIT (90MG) CAPSULE PO SCH (08:01)
[2019-06-26] MEDS: Furosemide 20 MG TABLET PO SCH (08:02)
[2019-06-26] MEDS: Aspirin Enteric Coated 81 MG Tablet PO SCH (08:02)
[2019-06-26] MEDS: Baclofen 10 MG TABLET PO SCH ×2 (08:02→20:32)
[2019-06-26] MEDS: Insulin LISPRO 300 UNITS/3 ML VIAL SQ SCH ×6 (08:03→17:04)
--- NOTE | 2019-06-26 09:51 | Neurology Progress Note ---
Date of Encounter: 06/26/19 Time of Encounter: 09:49 Assessment and Plan (1) Weakness Current Visit: Yes Status: Acute Objective, the patient remained stable without any further neurological development overnight. Plan is to undergo ACDF-3 level fusion on Sunday per Dr. Lugo. Neurology will sign off at this time. Please call should any urgent needs arise. Thank you for consulting [facility] (2) Radiculopathy Current Visit: Yes Status: Acute Qualifiers: Spinal region: cervical Qualified Code(s): M54.12 - Radiculopathy, cervical region Subjective Principal diagnosis: b/l leg weakness and Lt shoulder radiculopathy Interval history: Patient seen in follow-up for bilateral leg weakness and left shoulder radiculopathy. Continues to report bilateral leg weakness and notes that she is yet to be out of bed since admission. However, the nursing staff states that she has declined to get out of bed when offered. Nonetheless MRI of the cervi sameer, thoracic and lumbar spine showed severe critical stenosis and orthopedic surgery is following for this. She denies any acute neurologic symptoms overnight. Objective - Constitutional Vitals: Temp Pulse Resp BP Pulse Ox 97.6 F 65 18 126/68 93 06/26/19 07:27 06/26/19 07:27 06/26/19 07:27 06/26/19 07:27 06/26/19 07:27 Exam: Examination: General Examination: *CONSTITUTIONAL: Alert and oriented x3, no acute distress *GENERAL APPEARANCE OF PATIENT obese 69-year-old F, appears healthy and well groomed *EYES: pupils equal, round, reactive to light and accommodation, conjunctiva clear *CARDIOVASCULAR: No peripheral edema, distal temperature normal, dorsalis pedis pulses normal. Refer to vital signs * MUSCULOSKELETAL: *GAIT AND STATION: Deferred due to risk for falls *ASSESSMENT OF MUSCLE STRENGTH IN THE UPPER AND LOWER EXTREMITIES the left deltoid and biceps is 3/5 otherwise, right triceps is 4/5 right groundskeeping yardman strength a lso 4/5. Left hip flexor, anterior tibialis and dorsiflexion of the left foot is 4/5. Right deltoid, bicep, tricep, groundskeeping yardman strength, hip flexor, anterior tibialis and dorsiflexion 4/5. Patient does have somewhat dysrhythmic and discoordinated finger movement bilaterally *MUSCLE TONE IN THE UPPER AND LOWER EXTREMITIES normal. No abnormal movements, fasciculations or atrophy identified. Neurological: *ORIENTATION to person, situation, time and place *LANGUAGE AND FUNCTION no significant aphasia or dysarthia was noted. *ATTENTION AND CONCENTRATION are normal *LANGUAGE FUNCTION no significant aphasia or dysarthia was noted. *FUND OF KNOWLEDGE aware of current events, past history, vocabulary *MENTAL attention span and concentration normal. *CN II optic fundi were normal, no papilledema noted. *CN III,IV, PERRLA extraocular eye movements were full, no nystagmus and no ptosis noted. *CN V shows normal sensation and jaw opens symmetrically. *CN VII shows normal facial movement symmetrically, upper and lower bilat erally. *CN VIII shows no significant hearing loss on exam *CN IX-X palate elevated symmetrically *CN XI normal strength in the sternocleidomastoid muscles, symmetrical shoulder shrugging. *CN XII tongue protruded in the midline, with normal strength and movement. *SENSORY EXAMINATION light touch intact *REFLEXES: deep tendon reflexes were diminished diffusely, no pathological reflexes were noted. *CEREBELLAR TESTING normal finger to nose, heel/knee/couch *PAIN LEVEL 0/10 Results - Laboratory Findings CBC and BMP: 06/26/19 04:10 06/26/19 04:10 Abnormal lab findings: Abnormal lab results BUN 24 mg/dL (8-23) H 06/26/19 04:10 BUN/Creatinine Ratio 33 (6-26) H 06/26/19 04:10 Glucose 236 mg/dL (70-105) H 06/26/19 04:10 POC Glucose 200 mg/dL (70-99) H 06/25/19 15:42 Consult Discharge Plan - Plan Referrals: NONE,PCP [Primary Care Provider] -
[2019-06-26] MEDS: Insulin DETEMIR 100 UNIT/ML X5UNITS SQ SCH ×2 (12:51→20:32)
--- NOTE | 2019-06-26 13:44 | Cardiology Consult Note ---
Date of Encounter: 06/26/19 Time of Encounter: 13:42 Assessment and Plan (1) Pre-operative cardiovascular examination Current Visit: Yes Status: Acute Hx of CABG in 2007 in [place]. Pt denies stress test or LHC since then. Continue home ASA, BB and statin. Echo 06/26/19: LVEF 60-65%, Atypical septal motion consistent with post-operative status, no significant valvular dysfunction. Pt does report occasional sharp chest pain that is relived with rest. States is mostly only able to ambulate around the house and do light aquatic exercises due to her right knee pain. Given patient's symptoms, CAD hx and mostly sedentary lifestyle -- recommending ischemic eval prior to surgery. Will order pharmacologic stress test for tomorrow. Pt is agreeable. (2) CAD (coronary artery disease) Current Visit: Yes Status: Acute Continue home ASA, BB and statin. Plan as above. Qualifiers: Coronary Disease-Associated Artery/Lesion type: [place] artery [place] vs. transplanted heart: [place] heart Associated angina: with unspecified angina Qualified Code(s): I25.119 - Atherosclerotic heart disease of [place] coronary artery with unspecified angina pectoris Discussion w patient/family: The assessment and plan as outlined above was discussed with the patient and/or family members who expressed understanding and agreement. All questions were answered. Thank you for involving us in the care of your patient. Please call with any questions. The above assesment and plan will be discussed with Dr. Clement and I will make changes as necessary. History of Present Illness Consult date: 06/26/19 Consult reason: preop clearance for cervical fusion. Hx of CAD s/p CABG History of present illness: Ms. Tobias is a 69 year old female with a PMHx of CAD s/p CABG (2007), DM2 with peripheral neuropathy, HTN and OA. She was transferred to our facility from [place] for a neurological assessment on account of weakness. We have been asked to see her for preop clearance for cervical fusion due to hx of CAD s/p CABG and abnormal EKG at baseline. She denies CP, SOB, palpitations and lightheadedness when she rises from a seated position. Past Med Surg Social Fam HX - Past Medical History Medical history: coronary artery disease (s/p CABG in 2007), diabetes, hypertension Psychiatric history: no psych history - Past Surgical History Additional surgical history: Foot, sweat gland, - Social History Smoking Status: Never smoker Smokeless Tobacco Status: No Alcohol use: none Drug use: none - Family History Sister Name: Nini Age: 69 Family Member Ethnicity: Non- Twin of Family Member: Yes, Identical Living Status: Still Living Hx Family Cancer: Yes (Skin) Hx Family Endocrine Disorder: Yes (Diabetes) Hx Family Autoimmune Disorders: Yes (CREST disease) Medications and Allergies Aspirin [Lo-Dose Aspirin EC] 81 mg PO DAILY 06/23/19 [History] Calcium Carbonate [Calcium] 600 mg PO DAILY 06/23/19 [History] Docusate Sodium [Stool Softener] 100 mg PO BID PRN 06/23/19 [History] Insulin ASPART [Novolog Flexpen] 8 unit SQ TID 06/23/19 [History] Insulin Glargine,Hum.rec.anlog [Lantus Solostar] 50 unit SQ BID 06/23/19 [Histor y] Levothyroxine Sodium [Levoxyl] 50 mcg PO DAILY 06/23/19 [History] Lisinopril/Hydrochlorothiazide [Lisinopril-Hctz 20-25 mg Tab] 1 tab PO DAILY 06/23/19 [History] Potassium Chloride [K-Tab ER] 20 meq PO DAILY 06/23/19 [History] Vitamin E 400 unit PO DAILY 06/23/19 [History] Atorvastatin [Lipitor] 40 mg PO QPM 06/24/19 [History] Cholecalciferol (Vitamin D3) [Dialyvite Vitamin D] 5,000 units PO DAILY 06/24/19 [History] Metformin HCl [Glucophage] 1,000 mg PO BID 06/24/19 [History] Metoprolol Succinate [Toprol Xl] 100 mg PO DAILY 06/24/19 [History] Allergy/AdvReac Type Severity Reaction Status Date / Time adhesive tape Allergy Rash Verified 06/24/19 14:33 lidocaine Allergy Rash Verified 06/24/19 14:33 Procaine [From Novocain] Allergy Rash Verified 06/24/19 14:33 All Systems Review: The remainder of the systems were reviewed and are negative - Cardiovascular Cardiovascular: as per HPI Physical Examination Vital Signs, Last 4 Hours Temp Pulse Resp BP Pulse Ox 06/26/19 11:18 98.0 F 66 18 112/69 95 General: Conversant HEENT: Atraumatic, Normocephaly, Mucus Membranes Moist Neck: No JVD, Normal carotid pulses Cardiac: Reg Rate and Rhythm, Normal S1 and S2, No Murmur Lungs: Normal Breath Sounds, No Wheeze, Rales, Rhonchi Neuro: Alert and responsive, No focal deficits noted Extremities: No Clubbing, No Cyanosis, No Edema Results 06/26/19 04:10 06/26/19 04:10 Lab Results 06/26/19 06/26/19 04:10 04:10 WBC 7.1 Hgb 13.3 Hct 42.1 Plt Count 211 Sodium 138 Potassium 3.7 Chloride 103 Carbon Dioxide 28 BUN 24 H Creatinine 0.73 Glucose 236 H Calcium 9.3 Magnesium 2.1 - Imaging and Cardiology Echo: report reviewed - EKG Interpretation EKG results cardiology: personally reviewed, normal ECG, sinus rhythm Consult Discharge Plan - Plan Referrals: NONE,PCP [Primary Care Provider] -
--- NOTE | 2019-06-26 17:46 | Electrocardiograph Report ---
[address] [place], [place] [address] Test Date: 2019-06-25 Pat Name: Clary Tobias Department: 112 Room: 2A22 Gender: F Outfitter Cabin: : 1950 Requested By: Evelyne Al Order Number: [id number] Reading MD: Radha Clement Measurements Intervals [place] Rate: 75 P: 61 NE: 202 QRS: 44 QRSD: 99 T: 96 QT: 412 QTc: 440 Interpretive Statements SINUS RHYTHM MODERATE ST DEPRESSION Electronically Signed On 06-26-2019 17:45:12 EDT by Radha Clement
--- NOTE | 2019-06-26 18:19 | Anesthesia Evaluation PreOp ---
Date of Encounter: 06/26/19 Time of Encounter: 18:17 - Past History Planned Operation: ACDF C4-C7 Cardiac History: HTN, Hyperlipidemia, Cardiac Surgery (CABG 2007), Other (LVEF 60-65%, PT SCHEDULED FOR STRESS TEST 06/27) Pulmonary History: SOPHIE Dx (BIPAP) CALL MANAGER History: Other (SEVERE CERVICAL AND LUMBAR RADICULOPATHY, WITH TEO UPPER & LOWER EXT WEAKNESS) Other Medical History: Diabetes Type II (INSULIN & ORAL HYPOGLYCEMIC, POORLY CONTROLLED), Thyroid, Other (OBESITY) Anesthesia History: No Prior Anesthetic Complications, Past Anesthesia Alcohol Use: none Drug use: none Medications and Allergies Aspirin [Lo-Dose Aspirin EC] 81 mg PO DAILY 06/23/19 [History] Calcium Carbonate [Calcium] 600 mg PO DAILY 06/23/19 [History] Docusate Sodium [Stool Softener] 100 mg PO BID PRN 06/23/19 [History] Insulin ASPART [Novolog Flexpen] 8 unit SQ TID 06/23/19 [History] Insulin Glargine,Hum.rec.anlog [Lantus Solostar] 50 unit SQ BID 06/23/19 [History] Levothyroxine Sodium [Levoxyl] 50 mcg PO DAILY 06/23/19 [History] Lisinopril/Hydrochlorothiazide [Lisinopril-Hctz 20-25 mg Tab] 1 tab PO DAILY 06/23/19 [History] Potassium Chloride [K-Tab ER] 20 meq PO DAILY 06/23/19 [History] Vitamin E 400 unit PO DAILY 06/23/19 [History] Atorvastatin [Lipitor] 40 mg PO QPM 06/24/19 [History] Cholecalciferol (Vitamin D3) [Dialyvite Vitamin D] 5,000 units PO DAILY 06/24/19 [History] Metformin HCl [Glucophage] 1,000 mg PO BID 06/24/19 [History] Metoprolol Succinate [Toprol Xl] 100 mg PO DAILY 06/24/19 [History] Allergy/AdvReac Type Severity Reaction Status Date / Time adhesive tape Allergy Rash Verified 06/24/19 14:33 lidocaine Allergy Rash Verified 06/24/19 14:33 Procaine [From Novocain] Allergy Rash Verified 06/24/19 14:33 - Meds/Allergy Pre-op Review Medications Reviewed: Yes Allergies Reviewed: Yes Beta Blockers on Current Med List: Yes Anesthesia Results - Labs 06/26/19 04:10 06/26/19 04:10 Laboratory Tests 06/20/19 06/25/19 06/26/19 11:00 09:35 04:10 PT 11.6 INR 1.0 Est GFR (Non-Af Amer) > 60 Hemoglobin A1c 8.7 H Calcium 9.3 Phosphorus 3.2 Magnesium 2.1 - Imaging Additional studies: SPINE MRI 06/24/2019: CERVICAL Multilevel cervical spondylosis results in multilevel moderate to severe spinal canal stenosis which is most pronounced at C4-C5. Focal area of abnormal signal in the right cervical cord at the C4-C5 level could relate to myelomalacia or edema. Flattening of the cervical cord at multiple levels. Multilevel moderate to severe neural foraminal narrowing. LUMBAR Multilevel lumbar spondylosis results in multilevel spinal canal stenosis which is most pronounced and moderate at L2-L3. Multilevel moderate to severe neural foraminal narrowing. THORACIC Mild multilevel degenerative disease in the thoracic spine results in mild multilevel spinal canal stenosis. No severe thoracic spinal canal stenosis at any level. The thoracic spinal cord is normal in size and signal. Anesthesia Exam Vital Signs/O2 Sat/Glucose, Most Recent Temp Pulse Resp BP Pulse Ox 97.8 F 79 17 130/64 96 06/26/19 19:33 06/26/19 19:33 06/26/19 19:33 06/26/19 19:33 06/26/19 19:33 Blood Glucose* 229 Weight: 133 KG - BMI 50 NPO (# of Hours): >MN - HEENT Mallampati: III Teeth: Edentulous Denture Type: Upper: Complete, Lower: Complete - CALL MANAGER CALL MANAGER Motor: Normal Face (CN 2-12 GROSSLY NORMAL), Deficit RUE (4/5 FINE MOTOR WEAKNESS), Deficit LUE (3/5 MOTOR ), Deficit RLE (3/5 ), Deficit LLE (4/5 ) - Cardiac Rhythm: Regular - Pulmonary Breath Sounds: bilateral Clear Anesthesia Assess/Plan ASA Score: 4 Anesthetic Plan: General, Precautions (POSSIBLE AWAKE FOB) Monitoring Plan: Standard Monitors Recovery Plan: PACU
[2019-06-27 04:42] LABS: Basophils % 0.3 %; Eosinophils # 0.3 K/mcL (0.0-0.6); Eosinophils % 3.5 %; Hematocrit 42.1 % (35.3-44.9); Hemoglobin 13.6 g/dL (11.5-15.4); Immature Granulocytes % 0.3 % (0-4); Lymphocytes # 2.4 K/mcL (0.6-4.6); Lymphocytes % 26.2 %; Mean Corpuscular HGB Conc 32.3 g/dL (31.6-35.5); Mean Corpuscular Hemoglobin 29.6 pg (28.0-33.3); Mean Corpuscular Volume 91.7 fL (83.0-100.0); Mean Platelet Volume 10.5 fL (9.4-12.4); Monocytes # 0.8 K/mcL (0.0-1.3); Monocytes % 9.2 %; Neutrophils # 5.5 K/mcL (1.6-8.9); Platelet Count 227 K/mcL (140-400); Red Blood Count 4.59 M/mcL (3.82-4.97); Red Cell Distribution Width 13.2 % (11.5-14.5); Segmented Neutrophils % 60.5 %
[2019-06-27 05:01] LABS: BUN/Creatinine Ratio 39 (6-26); Blood Urea Nitrogen 30 mg/dL (8-23); Calcium 9.2 mg/dL (8.6-10.3); Carbon Dioxide 24 mEq/L (23-29); Chloride 103 mEq/L (98-107); Glucose 221 mg/dL (70-105); Osmolality,Calculated 295 (280-300); Phosphorous 3.5 mg/dL (2.7-4.5); Sodium 136 mEq/L (136-145); eGFR For African Americans > 60 (> 60); eGFR For Non-African Americans > 60 (> 60)
[2019-06-27] MEDS: *HR* Heparin 5,000 UNIT/ML VIAL SQ SCH ×3 (05:49→20:42)
[2019-06-27] MEDS ORDERED: Bacitracin 50,000 UNIT, Polymyxin B Sulfate 500,000 UNIT, Sodium Chloride IRRigation 1,... IR ONE (06:00)
[2019-06-27] MEDS ORDERED: Regadenoson 0.4 MG/5 ML SYRINGE IVP ONE (06:09)
--- NOTE | 2019-06-27 07:38 | Internal Med Progress Note ---
Hospitalist Progress Note - Encounter Date of Encounter: 06/27/19 Time of Encounter: 09:00 - Subjective Interval History: No acute events overnight - Exam Vitals: Temp Pulse Resp BP Pulse Ox 98.5 F 77 18 133/77 94 06/27/19 07:25 06/27/19 07:25 06/27/19 07:25 06/27/19 07:25 06/27/19 07:25 Exam: GENERAL: Not in distress. Alert and Oriented HEENT: EOMI, PERRLA MOUTH: Moist oral mucosa NECK:No JVD, No lymph nodes. CHEST AND LUNGS: Normal breath sounds, no wheezes or crackles HEART: S1 and S2 normal, no murmurs ABDOMEN: Soft, nontender, no organomegaly SKIN: Normal color, no rahses, no lesions EXTREMITIES: No deformity, no edema, no tenderness, no joint swelling or clubbing NEUROLOGICAL: CN II-XII intact. Patient has lost sensation to both light and crude touch as well as proprioception in both feet. Exam negative for possible cerebellar defects. - Assessment and Plan (1) Weakness Current Visit: Yes Status: Acute Assessment and Plan: Patient reports muscle spasms and severe lower extremity weakness bilaterally MRI cervical and lumbar spine showed sever L2- L3 stenosis and C4-C5 myelomalacia or edema Spine surgery consulted and plan for cervical decompression and spine fusion on sunday Surgery has to be rescheduled for sunday due to 2 day stress test that will be completed tomorrow (2) Preoperative clearance Current Visit: Yes Status: Acute Assessment and Plan: Pt has good functional status at baseline with METS>4 but leads a sedentary lifestyle Does have history of CAD s/p CABG. EKG showed baseline ST segment depression Echo showed preserved EF. Ischemic workup by cardiology prior to surgery due to CAD and sedentary lifestyle To complete 2 day stress test in am (3) Radiculopathy Current Visit: Yes Status: Acute Assessment and Plan: Patient reports shocklike pain that radiates from the back of her neck into her upper extremities. Scheduled for surgery pending clearance by cardio (4) Diabetes mellitus Current Visit: Yes Status: Chronic Assessment and Plan: Patient has diabetes on long-term insulin She is currently exercising by swimming and watching her diet and trying to obtain an A1c of less than so she can qualify for a right total knee replacement. We will resume her home dose of long-acting insulin. Accu-Cheks Insulin sliding scale (5) Hypertension Current Visit: Yes Status: Acute Assessment and Plan: Blood pressure currently controlled. Resume home meds (6) Osteoarthritis Current Visit: Yes Status: Acute Assessment and Plan: Patient has severe right knee osteoarthritis She is due for TKR but cannot have the procedure until her A1c is less than 8 Give when necessary analgesia. (7) Peripheral neuropathy Current Visit: Yes Status: Acute Assessment and Plan: Patient has severe peripheral neuropathy from diabetes. On physical exam she had no sensation in both feet and also could not tell position sense. Recommend strict control of diabetes (8) Falls Current Visit: Yes Status: Acute Assessment and Plan: Patient reported having fallen 2 times in the last 2 weeks are related to sensory loss in her feet as well as her right knee osteoarthritis Recommend PT OT (9) DVT prophylaxis Current Visit: Yes Status: Acute Assessment and Plan: SQ Heparin. - Time Spent with Patient Total time spent is greater than 50% in coordination of care (as documented) at patient's floor/unit and/or counseling patient: Internal Medicine: Result - Labs CBC & Chem 7: 06/27/19 04:02 06/27/19 04:02 Labs: Short CBC 06/27/19 Range/Units 04:02 WBC 9.0 (4.3-11.1) K/mcL Hgb 13.6 (11.5-15.4) g/dL Hct 42.1 (35.3-44.9) % Plt Count 227 (140-400) K/mcL Neutrophils # 5.5 (1.6-8.9) K/mcL BMP 06/27/19 04:02 Sodium 136 Potassium 4.0 Chloride 103 Carbon Dioxide 24 BUN 30 H Creatinine 0.76 Glucose 221 H Calcium 9.2 - ABG Interpretation ABG results: PT/INR, D-dimer PT 11.6 Seconds (9.4-12.1) 06/25/19 09:35 - Impressions Impressions Echocardiogram 06/25/19 13:04 Impressions: Technically sub-optimal due to poor echocardiographic windows. LVEF 60-65%. Normal LV chamber size and function. Mild concentric left ventricular hypertrophy. Mild left ventricular diastolic dysfunction. Atypical septal motion consistent with post-operative status. Right ventricle was not well visualized. No evidence of pulmonary hypertension. No significant valvular dysfunction. Left Ventricular Wall Motion: Rest Echo Findings All wall segments showed normal motion. Findings: Study Quality * Technically sub-optimal due to poor echocardiographic windows. ECG Findings * Normal sinus rhythm. Left Ventricle * LVEF 60-65%. * Normal LV chamber size and function. * Mild concentric left ventricular hypertrophy. * Mild left ventricular diastolic dysfunction. * Atypical septal motion consistent with post-operative status. Right Ventricle * Right ventricle was not well visualized. Left Atrium * Normal left atrial size. Right Atrium * Normal right atrial size. Interatrial Septum * Interatrial septum not well evaluated. Aortic Valve * Aortic valve not well visualized. * No aortic regurgitation. * No aortic stenosis. Mitral Valve * Mild to moderate posterior mitral annular calcification. * No significant mitral stenosis. Mean gradient 3 mmHg. * No mitral regurgitation. Tricuspid Valve * Normal tricuspid valve structure and function. * Trace tricuspid regurgitation. * No evidence of pulmonary hypertension. Pulmonic Valve * Pulmonic valve not well visualized. Aorta * Normally sized aortic root. Pericardium * The pericardium appears normal. IVC * Normal IVC dimensions and inspiratory collapse. Pulmonary Artery * Pulmonary artery not well visualized. Consult Discharge Plan - Plan Referrals: NONE,PCP [Primary Care Provider] - (3) Radiculopathy Qualifiers: Spinal region: cervical Qualified Code(s): M54.12 - Radiculopathy, cervical region (4) Diabetes mellitus Qualifiers: Diabetes mellitus type: type 2 Diabetes mellitus shelter insulin use: with shelter use Diabetes mellitus complication status: with neurologic complications Diabetes mellitus complication detail: with mononeuropathy Qualified Code(s): E11.41 - Type 2 diabetes mellitus with diabetic mononeuropathy; Z79.4 - terminal supervisor (current) use of insulin (5) Hypertension Qualifiers: Hypertension type: essential hypertension Qualified Code(s): I10 - Essential (primary) hypertension (6) Osteoarthritis Qualifiers: Osteoarthritis location: knee Osteoarthritis type: primary Laterality: right Qualified Code(s): M17.11 - Unilateral primary osteoarthritis, right knee (7) Peripheral neuropathy Qualifiers: Peripheral neuropathy type: polyneuropathy associated with underlying disease Qualified Code(s): G63 - Polyneuropathy in diseases classified elsewhere (8) Falls Qualifiers: Encounter type: initial encounter Qualified Code(s): W19.XXXA - Unspecified fall, initial encounter
--- NOTE | 2019-06-27 07:45 | Orthopedics Progress Note ---
Date of Encounter: 06/27/19 - Assessment and Plan (1) Cervical myelopathy Current Visit: Yes Status: Chronic (2) Cervical radiculopathy Current Visit: Yes Status: Chronic (3) Cervical stenosis of spine Current Visit: Yes Status: Chronic Subjective Principal diagnosis: b/l leg weakness and Lt shoulder radiculopathy Objective Vital signs: Vital Signs Temp Pulse Resp BP Pulse Ox 06/27/19 07:25 98.5 F 77 18 133/77 94 06/27/19 03:44 97.8 F 73 17 143/66 97 06/26/19 23:54 98.4 F 68 17 119/57 96 06/26/19 20:38 96 06/26/19 19:33 97.8 F 79 17 130/64 96 06/26/19 16:05 98.3 F 77 18 112/66 97 06/26/19 11:18 98.0 F 66 18 112/69 95 Intake and Output 06/26/19 06/26/19 06/27/19 15:59 23:59 07:59 Intake Total 240 / 600 360 / 600 Output Total 600 / 600 Balance 240 / 0 -240 / 0 Intake: Oral 240 / 600 360 / 600 Output: Urine 600 / 600 Other: Meal Breakfast Dinner Percent of Meal Consumed 100% 100% Stool Size Small Stool Consistency soft Stool Color Brown # Voids 1 # Bowel Movements 1 Weight 130.8 kg Blood Glucose* 312 201 209 - Labs CBC & BMP: 06/27/19 04:02 06/27/19 04:02 Labs: Abnormal lab results BUN 30 mg/dL (8-23) H 06/27/19 04:02 BUN/Creatinine Ratio 39 (6-26) H 06/27/19 04:02 Glucose 221 mg/dL (70-105) H 06/27/19 04:02 POC Glucose 201 mg/dL (70-99) H 06/26/19 20:28 Consult Discharge Plan - Plan Referrals: NONE,PCP [Primary Care Provider] -
[2019-06-27] MEDS: Aspirin Enteric Coated 81 MG Tablet PO SCH (08:05)
[2019-06-27] MEDS: Vitamin E 200 UNIT (90MG) CAPSULE PO SCH (08:06)
[2019-06-27] MEDS: Furosemide 20 MG TABLET PO SCH (08:06)
[2019-06-27] MEDS: Baclofen 10 MG TABLET PO SCH ×2 (08:06→20:42)
[2019-06-27] MEDS: Cholecalciferol (D-3) 1,000 UNIT (25MCG) TABLET PO SCH (08:07)
[2019-06-27] MEDS: Metoprolol XL (24 HR) Succ 50 MG TAB.ER.24H PO SCH (08:07)
[2019-06-27] MEDS: Insulin LISPRO 300 UNITS/3 ML VIAL SQ SCH ×7 (10:30→20:42)
[2019-06-27] MEDS ORDERED: Lidocaine -MPF 4% 5 ML AMPUL ONE (10:34)
[2019-06-27] MEDS ORDERED: *HR* Succinylcholine 200 MG/10 ML VIAL IVP ONE (10:34)
[2019-06-27] MEDS ORDERED: Ondansetron 4 MG/2 ML VIAL ONE (10:34)
[2019-06-27] MEDS ORDERED: *HR* Rocuronium Bromide 50 MG/5 ML VIAL ONE (10:34)
[2019-06-27] MEDS ORDERED: Lidocaine -MPF 2% 2 ML VIAL ONE (10:34)
[2019-06-27] MEDS ORDERED: Dexamethasone 4 MG/ML VIAL ONE (10:34)
[2019-06-27] MEDS ORDERED: *HR* FentaNYL (PF) 100 MCG/2 ML VIAL ONE (10:35)
[2019-06-27] MEDS ORDERED: *HR* Propofol 200 MG/20 ML VIAL IVP ONE (10:35)
[2019-06-27] MEDS ORDERED: Lacri-Lube 3.5 GM TUBE ONE (10:40)
[2019-06-27] MEDS: Insulin DETEMIR 100 UNIT/ML X5UNITS SQ SCH ×2 (11:23→20:43)
[2019-06-28] MEDS: *HR* Heparin 5,000 UNIT/ML VIAL SQ SCH ×3 (06:32→21:52)
[2019-06-28 07:42] LABS: Basophils % 0.3 %; Eosinophils # 0.3 K/mcL (0.0-0.6); Eosinophils % 3.4 %; Hematocrit 41.7 % (35.3-44.9); Hemoglobin 13.6 g/dL (11.5-15.4); Immature Granulocytes % 0.4 % (0-4); Lymphocytes # 2.3 K/mcL (0.6-4.6); Lymphocytes % 29.6 %; Mean Corpuscular HGB Conc 32.6 g/dL (31.6-35.5); Mean Corpuscular Hemoglobin 29.8 pg (28.0-33.3); Mean Corpuscular Volume 91.4 fL (83.0-100.0); Mean Platelet Volume 10.4 fL (9.4-12.4); Monocytes # 0.9 K/mcL (0.0-1.3); Monocytes % 11.4 %; Neutrophils # 4.3 K/mcL (1.6-8.9); Platelet Count 218 K/mcL (140-400); Red Blood Count 4.56 M/mcL (3.82-4.97); Red Cell Distribution Width 13.3 % (11.5-14.5); Segmented Neutrophils % 54.9 %; White Blood Count 7.9 K/mcL (4.3-11.1)
[2019-06-28 07:54] LABS: BUN/Creatinine Ratio 40 (6-26); Blood Urea Nitrogen 35 mg/dL (8-23); Calcium 9.5 mg/dL (8.6-10.3); Carbon Dioxide 30 mEq/L (23-29); Chloride 99 mEq/L (98-107); Glucose 219 mg/dL (70-105); Osmolality,Calculated 301 (280-300); Potassium 4.2 mEq/L (3.5-5.1); Sodium 138 mEq/L (136-145); eGFR For African Americans > 60 (> 60); eGFR For Non-African Americans > 60 (> 60)
[2019-06-28] MEDS: Insulin LISPRO 300 UNITS/3 ML VIAL SQ SCH ×7 (09:24→21:52)
[2019-06-28] MEDS: Aspirin Enteric Coated 81 MG Tablet PO SCH (09:25)
[2019-06-28] MEDS: Vitamin E 200 UNIT (90MG) CAPSULE PO SCH (09:25)
[2019-06-28] MEDS: Metoprolol XL (24 HR) Succ 50 MG TAB.ER.24H PO SCH (09:26)
[2019-06-28] MEDS: Baclofen 10 MG TABLET PO SCH ×2 (09:26→21:52)
[2019-06-28] MEDS: Furosemide 20 MG TABLET PO SCH (09:26)
[2019-06-28] MEDS: Cholecalciferol (D-3) 1,000 UNIT (25MCG) TABLET PO SCH (09:26)
[2019-06-28] MEDS: Insulin DETEMIR 100 UNIT/ML X5UNITS SQ SCH ×2 (09:33→21:53)
--- NOTE | 2019-06-28 11:05 | Event Note ---
Date of Encounter: 06/28/19 Time of Encounter: 11:03 - Cardiology Event Note Stress test results personally reviewed and discussed with the patient. Abnormal results involving inferolateral wall ischemia represent intermediate risk findings. Recommend proceeding with C prior to surgery. The R/B/A of proceeding were discussed in detail with the patient who expressed understanding. Patient has decided to proceed. Renal function is normal. Patient is full code. Potential upcoming elective cervical fusion procedure. Patient aware of potential for delay.
--- NOTE | 2019-06-28 11:35 | Internal Med Progress Note ---
Hospitalist Progress Note - Encounter Date of Encounter: 06/28/19 Time of Encounter: 09:10 - Subjective Interval History: Patient was seen after stresses today, she feels fine she denied any chest pain or shortness of breath. She had no nausea scheduled or abdominal pain. - Exam Vitals: Temp Pulse Resp BP Pulse Ox 98.3 F 80 15 115/70 93 06/28/19 11:05 06/28/19 11:05 06/28/19 11:05 06/28/19 11:05 06/28/19 11:05 Exam: GENERAL: Not in distress. Alert and Oriented HEENT: EOMI, PERRLA MOUTH: Moist oral mucosa NECK:No JVD, No lymph nodes. CHEST AND LUNGS: Normal breath sounds, no wheezes or crackles HEART: S1 and S2 normal, no murmurs ABDOMEN: Soft, nontender, no organomegaly SKIN: Normal color, no rahses, no lesions EXTREMITIES: No deformity, no edema, no tenderness, no joint swelling or clubbing NEUROLOGICAL: CN II-XII intact. Strength is 5/5 in upper extremities and 4/5 lower extremities - Assessment and Plan (1) Weakness Current Visit: Yes Status: Acute (2) Radiculopathy Current Visit: Yes Status: Acute (3) Diabetes mellitus Current Visit: Yes Status: Chronic (4) Hypertension Current Visit: Yes Status: Acute (5) Osteoarthritis Current Visit: Yes Status: Acute (6) Peripheral neuropathy Current Visit: Yes Status: Acute (7) Falls Current Visit: Yes Status: Acute (8) DVT prophylaxis Current Visit: Yes Status: Acute (9) Preoperative clearance Current Visit: Yes Status: Acute - Summary of Assessment and Plan Summary of Assessment and Plan: 69-year-old female with history of HTN, IDDM who was admitted for lower extremity weakness and falls. Spinal canal stenosis: Moderate to severe endocervical spine with focal area of abnormal signal in the right cervical cord at C4-C5 level which could be myelomalacia or edema. Mild stenosis in the thoracic spine and moderate in the lumbar. Orthopedic surgery consulted and did recommend cervical decompression and three-level fusion. Initially surgery was arranged for Sunday however Preoperative stress test is positive for ischemia and patient will get LHC before. CAD: Preoperative Stress test is positive for inferolateral wall ischemia and patient is scheduled for LHC likely Sunday. Continue aspirin, BB and Lipitor. IDDM with radiculopathy: Continue levemir and MSSI, Accu-Cheks TIDAC. HTN: Continue home medication Hypothyroidism: Continue home medication DVT prophylaxis: Subcutaneous heparin - - Time Spent with Patient Total time spent is greater than 50% in coordination of care (as documented) at patient's floor/unit and/or counseling patient: Plan of Care Discussed with: patient Internal Medicine: Result - Labs CBC & Chem 7: 06/28/19 07:03 06/28/19 07:03 Labs: Short CBC 06/28/19 Range/Units 07:03 WBC 7.9 (4.3-11.1) K/mcL Hgb 13.6 (11.5-15.4) g/dL Hct 41.7 (35.3-44.9) % Plt Count 218 (140-400) K/mcL Neutrophils # 4.3 (1.6-8.9) K/mcL BMP 06/28/19 07:03 Sodium 138 Potassium 4.2 Chloride 99 Carbon Dioxide 30 H BUN 35 H Creatinine 0.87 Glucose 219 H Calcium 9.5 - ABG Interpretation ABG results: PT/INR, D-dimer PT 11.6 Seconds (9.4-12.1) 06/25/19 09:35 Consult Discharge Plan - Plan Referrals: NONE,PCP [Primary Care Provider] - (2) Radiculopathy Qualifiers: Spinal region: cervical Qualified Code(s): M54.12 - Radiculopathy, cervical region (3) Diabetes mellitus Qualifiers: Diabetes mellitus type: type 2 Diabetes mellitus [facility] insulin use: with marine oil terminal superintendent use Diabetes mellitus complication status: with neurologic complications Diabetes mellitus complication detail: with mononeuropathy Qualified Code(s): E11.41 - Type 2 diabetes mellitus with diabetic mononeuropathy; Z79.4 - manager intermediate (current) use of insulin (4) Hypertension Qualifiers: Hypertension type: essential hypertension Qualified Code(s): I10 - Essential (primary) hypertension (5) Osteoarthritis Qualifiers: Osteoarthritis location: knee Osteoarthritis type: primary Laterality: right Qualified Code(s): M17.11 - Unilateral primary osteoarthritis, right knee (6) Peripheral neuropathy Qualifiers: Peripheral neuropathy type: polyneuropathy associated with underlying disease Qualified Code(s): G63 - Polyneuropathy in diseases classified elsewhere (7) Falls Qualifiers: Encounter type: initial encounter Qualified Code(s): W19.XXXA - Unspecified fall, initial encounter
--- NOTE | 2019-06-28 12:36 | Pre-Sedation Evaluation ---
Pre-sedation evaluation - Pre-sedation checklist Date of procedure: 06/28/19 Procedure: [facility] Recent Vitals: Last Vital Signs Temp 98.3 F 06/28/19 11:05 Pulse 80 06/28/19 11:05 Resp 15 06/28/19 11:05 BP 115/70 06/28/19 11:05 Pulse Ox 93 06/28/19 11:05 H&P (including ROS) documented in medical record: Yes Previous reaction to sedatives/anesthetics: No Dietary Status: NPO after Midnight ASA Classification *see protocol: CLASS II-Mild systemic disease Plan of Care: Pt appropriate candidate for procedure/moderate/conscious sedation, Risks/benefits of procedure/sedation discussed w/ patient/family Cardiac Registry (Cardio Only) - Functional Capacity Functional Capacity: >=4 METS with symptoms - Clincal Frailty Scale Clinical Frailty Scale: Managing Well
[2019-06-28] MEDS ORDERED: Verapamil 5 MG/2 ML VIAL ONE (13:22)
[2019-06-28] MEDS ORDERED: Iopamidol 125 ML INFUS..BTL ONE (13:22)
[2019-06-28] MEDS ORDERED: 0.9 % Sodium Chloride 1,000 ML ONE ×2 (13:22→13:28)
[2019-06-28] MEDS ORDERED: *HR* Heparin 10,000 UNIT/10 ML VIAL ONE (13:22)
[2019-06-28] MEDS ORDERED: Heparin 1,000 UNITS/500 mL 500 ML ONE (13:22)
[2019-06-28] MEDS ORDERED: Nitroglycerin 1,000 MCG/10 ML VIAL IV ONE (13:22)
[2019-06-28] MEDS ORDERED: *HR* FentaNYL (PF) 100 MCG/2 ML VIAL ONE (13:28)
[2019-06-28] MEDS ORDERED: *HR* Midazolam HCl 2 MG/2 ML VIAL ONE (13:28)
--- NOTE | 2019-06-28 14:22 | Event Note ---
Date of Encounter: 06/28/19 Time of Encounter: 14:30 - Cardiology Event Note 70% ostial RCA. Given urgent nature of surgery with neurological symptoms, and noncritical CAD, I recommend from a CV standpoint proceeding with surgery with int-high risk and outpt fu with me postop for PCI of RCA.
--- NOTE | 2019-06-28 14:38 | Invasive Diagnostic Lab Proc ---
Name: Clary Tobias Date of Study: 06/28/2019 Date: 1950 Ht: 64.0in Medical Record#: [id number] Age: 69 Wt: 284.62lb Gender: Female BSA: 2.27 Order #: [id number] BMI: 48.83 Physicians Procedure Physician: Nicola Crystal MD, FACC Referring MD: Referring MD: Staff Name Position Time In Edwin Langston RN Monitor 01:30 PM Edwin Langston RN Monitor 01:49 PM Dereck Sanchez RN Construction Code Administrator 01:49 PM Eleonora Zaidi RT (R) Scrub 01:49 PM Procedures Performed Procedure L HRT ART/GRFT ANGIO Pre-Procedure Checklist Informed consent is complete signed and on chart. H&P is on chart. ID band is on and ID verified with patient. Patient NPO for procedure The procedure was described for the patient and questions were answered. ECG is on chart. Plan of Care Patient will tolerate the procedure without complications. Adequate level of comfort will be maintained. Hemodynamics will remain stable Patient will recover from procedure without complications. Respiratory function will be maintained. Cardiac rhythm will remain stable. Patient temperature will be maintained. Patient and/or family have verbalized understanding of the procedure. Patient Education Chief Complaint/Reason for Test: Cardiac Cath Developmental Category: Geriatric (65+ years) Developmentally Appropriate for Age: Yes Learning Barriers: None Education Needs: Procedure Education Method: Verbal Information Taught: Cardiac Cath Educational Evaluation: Able to repeat information Intravenous Access Time IV Size Location DC'd Fluid/Drip Rate Units RN 20g 1 /" Patent On Arrival Lt Antecubital 0.9NaCl 50 ml/hr Allergies lidocaine Procaine adhesive tape Vital Signs Time BP (mmHg) HR (bpm) O2 Sat. RR (bpm) LOC 01:33 PM / % 5 = Fully awake and oriented or at pre-proc level 01:48 PM / % 5 = Fully awake and oriented or at pre-proc level 02:03 PM / % 4 = Oriented but drowsy 01:48 PM 133 / 70 67 100 % 8 01:54 PM 127 / 59 70 99 % 18 01:58 PM 133 / 70 67 95 % 12 02:03 PM 136 / 66 65 96 % 12 02:08 PM 133 / 66 65 97 % 12 02:13 PM 134 / 61 66 97 % 23 02:18 PM 133 / 67 66 99 % 14 Procedural Medications Time Medication Dose Units Method Given By 01:42 PM Oxygen 2 L/min nasal cannula Dereck Sanchez RN 01:52 PM Versed 2 mg Intravenous Dereck Sanchez RN 01:52 PM Fentanyl 50 mcg Intravenous Dereck Sanchez RN 02:00 PM Lidocaine 2% 20 ml Subcutaneous Nicola Crystal MD, [facility] ASA Classification: CLASS II- Mild systemic disease (i.e. well-controlled diabetes, hypertension, asthma, cigarette smoking) Tani Score Preprocedure Postprocedure Activity 2- Moves 4 extremities sustained head lift Activity 2- Moves 4 extremities sustained head lift Circulation 2- SBP +/= 20 points of pre-anesthetic level Circulation 2- SBP +/= 20 points of pre-anesthetic level Consciousness 2- Awake and alert oriented x 3 Consciousness 2- Awake and alert oriented x 3 O2 Saturation 2- Able to maintain O2 satruation of 92% on room air O2 Saturation 2- Able to maintain O2 satruation of 92% on room air Respiratory 2- Able to deep breathe and cough well Respiratory 2- Able to deep breathe and cough well Total Score 10 Total Score 10 Contrast Agent: Isovue Diagnostic Contrast: 59 ml Total Contrast: 59 ml Fluoro Dose: 28 mGy Procedure Log Time Note Enter By 01:33 PM Physician arrived 13:35 tsites 01:33 PM Pt arrived to medical laboratory scientist 2 at 13:33 tsites 01:35 PM Meet and greet completed tsites 01:36 PM Sign in performed according to hospital policy. Informed consent was obtained. tsites 01:40 PM Edwin Langston RN Position: Monitor Time in: 13:30 tsites 01:47 PM CathStat 01:47 PM Vitals capture started with the following parameters, Patient=Adult, Interval=5 min, Initial Yxpacscn=889 mmHg, Deflation Rate=3 mmHg, Cuff placed on Right Arm 01:47 PM Patient charges- Angio tray pack, Navilyst 3mm J, Pulse Oximetry and ACIST tubing and transducer tsites 01:48 PM Procedure start 13:40 tsites :48 PM Time: 13:42 Oxygen on at 2 L/min per nasal cannula by Dereck Sanchez RN tsites 01:48 PM HR=67 bpm, RYBY=503/70 mmhg, FqH3=787.0 %, Resp=8 B/min 01:48 PM Time: 13:33 Patient comfortable and pain free: Yes tsites 01:48 PM Time: 13:33LOC: 5 = Fully awake and oriented or at pre-proc level tsites :48 PM Hair removed from procedure site in procedure lab using clippers. Bilateral groin prepped with Chloraprep by Eleonora Zaidi (R), then patient was draped. Skin intact. tsites :49 PM Edwin Langston RN Position: Monitor Time in: :49 tsites :49 PM Deerck Sanchez RN Position: Construction Code Administrator Time in: :49 tsites :49 PM Eleonora Zaidi (R) Position: Scrub Time in: :49 tsites 01:52 PM Recorded ECG: HR=73 Condition=Condition 1 01:52 PM Time: 13:52 Versed 2 mg Intravenous Given by Dereck Sanchez RN tsites :52 PM Time: 13:52 Fentanyl 50 mcg Intravenous Given by Dereck Sanchez RN tsites 01:54 PM HR=70 bpm, JJLX=365/59 mmhg, SpO2=99.0 %, Resp=18 B/min 01:55 PM ASA Class CLASS II- Mild systemic disease (i.e. well-controlled diabetes, hypertension, asthma, cigarette smoking) tsites 01:58 PM HR=67 bpm, IHCJ=560/70 mmhg, SpO2=95.0 %, Resp=12 B/min 01:59 PM Time out was performed according to hospital policy. Conscious sedation and anesthesia was achieved (see medication log with in this report above) tsites 01:59 PM Pressure channel 1 zeroed. 02:00 PM Time: 14:00 20 ml Lidocaine 2% to right groin Subcutaneous Given by Nicola Crystal MD, [facility] tsites 02:01 PM Micro-Introducer Kit utilized for sheath placement tsites 02:01 PM Access obtained by percutaneous puncture. 5Fr 10cm Terumo Leckrone sheath placed in right Femoral artery. [id number] tsites 02:02 PM 0.035 150cm Navilyst 3mmJ wire [id number] tsites 02:02 PM 5Fr FL 4 catheter inserted over the wire [facility] tsites 02:02 PM Recorded Pressure: Ao, HR=66, Condition=Condition 1 (Aorta) Ao 117/61/83 02:03 PM LCA angiography performed in multiple views. tsites 02:03 PM HR=65 bpm, SKQC=218/66 mmhg, SpO2=96.0 %, Resp=12 B/min 02:03 PM Time: 13:48LOC: 5 = Fully awake and oriented or at pre-proc level tsites 02:04 PM Time: 13:48 Patient comfortable and pain free: Yes tsites 02:04 PM Catheter removed tsites 02:04 PM 5Fr FR 4 catheter inserted over the wire DN tsites 02:05 PM Recorded Pressure: Ao, HR=64, Condition=Condition 1 (Aorta) Ao 123/62/89 02:05 PM RCA angiography performed in multiple views. tsites 02:08 PM HR=65 bpm, OORA=403/66 mmhg, SpO2=97.0 %, Resp=12 B/min 02:10 PM Catheter removed tsites 02:10 PM Wire removed tsites 02:11 PM 0.035 260cm Navilyst 3mmJ wire [id number] tsites 02:11 PM 5Fr IM catheter inserted over the wire [id number] tsites 02:11 PM Recorded Pressure: Ao, HR=69, Condition=Condition 1 (Aorta) Ao 136/53/83 02:11 PM Left BYRON to the LAD angio performed in multiple views. tsites 02:12 PM Catheter removed tsites 02:13 PM Long wire removed, short j wire going back in tsites 02:13 PM HR=66 bpm, DEZH=801/61 mmhg, SpO2=97.0 %, Resp=23 B/min 02:13 PM 5Fr Pigtail catheter inserted over the wire [facility] tsites 02:14 PM Pressure channel 1 zero failed. 02:14 PM Pressure channel 1 zeroed. 02:14 PM Recorded Pressure: LV, HR=56, Condition=Condition 1 (Left Ventricle) LV 100/-2/4 02:14 PM Catheter crossed the aortic valve and was selectively placed in the left ventricle. Pressures recorded on pullback for left heart catheterization. tsites 02:14 PM Recorded Pressure: LV, Ao, HR=69, Condition=Condition 1 (Left Ventricle) LV 111/4/24, (Aorta) Ao 128/48/79 02:15 PM Bolus angiogram of left Ventricle complete: 12 ml/sec for a total of 24 mls tsites 02:15 PM Catheter removed tsites 02:15 PM Wire removed tsites 02:15 PM Bolus angiogram of left Ventricle complete: 4 ml/sec for a total of 7 mls tsites 02:15 PM Procedure completed at 14:15 06/28/2019 tsites 02:15 PM Did you address IGOR flow and Dominance? YesCoronary Dominance: right tsites 02:16 PM Sign out completed: Radiation Dose 221.58 mGy, 27.7 Gy/cm2 Fluoro Time: 4.0 Isovue 370 - 200ml contrast 59 ml given by Nicola Crystal MD, [facility]. Complications: None. The patient was discharged out of the laboratory technology teacher in stable condition. Sedation minutes 23. Cardiac Rehab Consult needed: No. Confirmed administered medications: Yes tsites 02:17 PM Arterial sheath pulled, Mynx closure device used and was Successful [id number] S/N. tsites 02:17 PM Estimated Blood Loss: less than 20cc tsites 02:17 PM Post ECG NSR tsites 02:17 PM Post Blood Pressure 134/61 tsites 02:18 PM 14:18 Post Pulses Bilateral DP 1+ tsites 02:18 PM Information taught Cardiac Cath and Mynx tsites 02:18 PM Education needs Procedure, Plan of Care, and Disease Process tsites 02:18 PM Learning barriers :None tsites 02:18 PM Education Methods Verbal tsites 02:18 PM Education evaluation Able to repeat information tsites 02:18 PM HR=66 bpm, TGLI=466/67 mmhg, SpO2=99.0 %, Resp=14 B/min 02:18 PM Time: 14:03LOC: 4 = Oriented but drowsy tsites 02:19 PM Time: 14:04 Patient comfortable and pain free: Yes tsites 02:20 PM Site status No bleeding/ No Hematoma - Rt Groin as reported by Eleonora Zaidi RT (R) at 14:20 tsites 02:20 PM Opsite applied tsites 02:22 PM Report given to Candy TAN Pt taken to 2A Room #22. 14:22 tsites 02:22 PM Family placed in consult room. tsites 02:22 PM Complications: None tsites 02:22 PM Lesion found in Proximal LMCA. Pre Stenosis: 20 Pre IGOR Flow: tsites 02:22 PM Lesion found in Proximal LAD. Pre Stenosis: 50 Pre IGOR Flow: tsites 02:22 PM Lesion found in Mid LAD. Pre Stenosis: 50 Pre IGOR Flow: tsites 02:23 PM Lesion found in Proximal Circumflex. Pre Stenosis: 30 Pre IGOR Flow: tsites 02:23 PM Lesion found in 1st Marginal. Pre Stenosis: 60 Pre IGOR Flow: tsites 02:23 PM Lesion found in Proximal RCA. Pre Stenosis: 70 Pre IGOR Flow: tsites 02:28 PM Patient out of room: 14:28 tsites Complications Complication None None Hemodynamics Pressures Site Systolic/A Wave Diastolic/V Wave Mean AO 117 61 83 AO 123 62 89 AO 136 53 83 LV 100 -2 4 LV 111 4 24 AO 128 48 79 Post Procedure Information Blood Pressure: 134/61 mmHg Rhythm: NSR Post procedural instructions were given Closure Device Time Device Success/Fail 06/28/2019 2:18:00 PM MynxGrip Successful Site Checks Time Location Status Staff Sheath In? Note 02:20 PM Rt Groin No bleeding/ No Hematoma Eleonora Zaidi RT (R) Pulses Time Site Pre-Procedure Post-Procedure Note Bilateral radial 2+ 2:18:00 PM Bilateral DP 1+ Updated by Luz Maria Serrano RT (R) on 06/28/2019 2:30:14 PM Luz Maria Serrano RT electronically signed on 06/28/2019 2:30:34 PM with status of Final
--- NOTE | 2019-06-28 18:21 | Orthopedics Progress Note ---
Date of Encounter: 06/28/19 Time of Encounter: 09:30 Subjective Principal diagnosis: b/l leg weakness and Lt shoulder radiculopathy Interval history: S: Patient was seen earlier this morning. She is awaiting cardiac clearance for her ACDF. No new injuries or complaints. O: Afebrile and her vital signs are stable Neurovascularly intact in the bilateral upper and lower extremities. A: Cervical stenosis P: Plan for ACDF on Sunday with cardiac clearance this . Objective Vital signs: Vital Signs Temp Pulse Resp BP Pulse Ox 06/28/19 16:03 97.9 F 70 16 110/73 95 06/28/19 14:41 72 117/62 06/28/19 11:05 98.3 F 80 15 115/70 93 06/28/19 07:30 98.0 F 61 16 111/69 95 06/27/19 23:50 98.0 F 70 18 110/64 95 06/27/19 19:14 98.1 F 77 18 122/69 95 Intake and Output 06/28/19 06/28/19 06/28/19 07:59 15:59 23:59 Intake Total 0 / 240 240 / 240 Output Total 150 / 150 Balance 0 / 90 240 / 90 -150 / 90 Intake: Oral 0 / 240 240 / 240 Output: Urine 150 / 150 Other: Meal Breakfast Percent of Meal Consumed 100% # Voids 1 1 Weight 129.1 kg Blood Glucose* 222 279 207 Patient Weight 06/28/19 23:59 Weight 129.1 kg - Labs CBC & BMP: 06/28/19 07:03 06/28/19 07:03 Labs: Abnormal lab results Carbon Dioxide 30 mEq/L (23-29) H 06/28/19 07:03 BUN 35 mg/dL (8-23) H 06/28/19 07:03 BUN/Creatinine Ratio 40 (6-26) H 06/28/19 07:03 Glucose 219 mg/dL (70-105) H 06/28/19 07:03 POC Glucose 222 mg/dL (70-99) H 06/28/19 05:33 Calculated Osmolality 301 (280-300) H 06/28/19 07:03 Consult Discharge Plan - Plan Referrals: NONE,PCP [Primary Care Provider] -
[2019-06-29 05:21] LABS: Basophils % 0.4 %; Eosinophils # 0.3 K/mcL (0.0-0.6); Eosinophils % 3.3 %; Hemoglobin 13.3 g/dL (11.5-15.4); Immature Granulocytes % 0.3 % (0-4); Lymphocytes # 2.1 K/mcL (0.6-4.6); Lymphocytes % 27.5 %; Mean Corpuscular HGB Conc 32.4 g/dL (31.6-35.5); Mean Corpuscular Hemoglobin 29.8 pg (28.0-33.3); Mean Corpuscular Volume 91.7 fL (83.0-100.0); Mean Platelet Volume 10.5 fL (9.4-12.4); Monocytes # 0.9 K/mcL (0.0-1.3); Monocytes % 11.2 %; Neutrophils # 4.5 K/mcL (1.6-8.9); Platelet Count 216 K/mcL (140-400); Red Blood Count 4.47 M/mcL (3.82-4.97); Red Cell Distribution Width 13.3 % (11.5-14.5); Segmented Neutrophils % 57.3 %; White Blood Count 7.8 K/mcL (4.3-11.1)
[2019-06-29] MEDS: *HR* Heparin 5,000 UNIT/ML VIAL SQ SCH ×3 (05:34→20:26)
[2019-06-29 05:40] LABS: BUN/Creatinine Ratio 47 (6-26); Blood Urea Nitrogen 39 mg/dL (8-23); Calcium 9.1 mg/dL (8.6-10.3); Carbon Dioxide 28 mEq/L (23-29); Chloride 101 mEq/L (98-107); Glucose 214 mg/dL (70-105); Magnesium 2.1 mg/dL (1.6-2.6); Osmolality,Calculated 298 (280-300); Phosphorous 4.3 mg/dL (2.7-4.5); Potassium 3.9 mEq/L (3.5-5.1); Sodium 136 mEq/L (136-145); eGFR For African Americans > 60 (> 60); eGFR For Non-African Americans > 60 (> 60)
[2019-06-29] MEDS: Insulin LISPRO 300 UNITS/3 ML VIAL SQ SCH ×7 (08:05→20:27)
[2019-06-29] MEDS: Aspirin Enteric Coated 81 MG Tablet PO SCH (08:06)
[2019-06-29] MEDS: Baclofen 10 MG TABLET PO SCH ×2 (08:06→20:26)
[2019-06-29] MEDS: Metoprolol XL (24 HR) Succ 50 MG TAB.ER.24H PO SCH (08:06)
[2019-06-29] MEDS: Insulin DETEMIR 100 UNIT/ML X5UNITS SQ SCH ×2 (08:06→20:26)
[2019-06-29] MEDS: Vitamin E 200 UNIT (90MG) CAPSULE PO SCH (08:06)
[2019-06-29] MEDS: Cholecalciferol (D-3) 1,000 UNIT (25MCG) TABLET PO SCH (08:06)
[2019-06-29] MEDS: Furosemide 20 MG TABLET PO SCH (08:06)
--- NOTE | 2019-06-29 08:14 | Event Note ---
Date of Encounter: 06/29/19 Time of Encounter: 08:13 - Cardiology Event Note Will arrange outpatient f/u with Dr. Crystal for PCI to RCA. Cardiology will sign off at this time. Please re consult as needed.
--- NOTE | 2019-06-29 10:02 | Internal Med Progress Note ---
Hospitalist Progress Note - Encounter Date of Encounter: 06/29/19 Time of Encounter: 10:40 - Subjective Interval History: No major events overnight. Patient was seen this a.m. sHe denied fever, chills or night sweats. sHe has no nausea, vomiting or abdominal pain. Patient denied chest pain, shortness of breath or palpitation. - Exam Vitals: Temp Pulse Resp BP Pulse Ox 97.6 F 64 18 114/47 91 06/29/19 07:06/29/19 07:06/29/19 07:06/29/19 07:06/29/19 07:29 Exam: GENERAL: Not in distress. Alert and Oriented HEENT: EOMI, PERRLA MOUTH: Moist oral mucosa NECK:No JVD, No lymph nodes. CHEST AND LUNGS: Normal breath sounds, no wheezes or crackles HEART: S1 and S2 normal, no murmurs ABDOMEN: Soft, nontender, no organomegaly SKIN: Normal color, no rahses, no lesions EXTREMITIES: No deformity, no edema, no tenderness, no joint swelling or clubbing NEUROLOGICAL: CN II-XII intact. Strength is 5/5 in upper extremities and 4/5 lower extremities - Assessment and Plan (1) Cervical myelopathy Current Visit: Yes Status: Chronic (2) Diabetes mellitus Current Visit: Yes Status: Chronic (3) Hypertension Current Visit: Yes Status: Acute (4) Osteoarthritis Current Visit: Yes Status: Acute (5) Peripheral neuropathy Current Visit: Yes Status: Acute (6) Falls Current Visit: Yes Status: Resolved (7) DVT prophylaxis Current Visit: Yes Status: Acute (8) Preoperative clearance Current Visit: Yes Status: Acute (9) CAD (coronary artery disease) Current Visit: Yes Status: Acute - Summary of Assessment and Plan Summary of Assessment and Plan: 69-year-old female with history of HTN, IDDM who was admitted for lower extremity weakness and falls. Spinal canal stenosis/ myleopathy: Moderate to severe endocervical spine with focal area of abnormal signal in the right cervical cord at C4-C5 level which could be myelomalacia or edema. Mild stenosis in the thoracic spine and moderate in the lumbar. Orthopedic surgery consulted and did recommend cervical decompression and three-level fusion. tomorrow for spinal surgery. NPO after midnight. CAD: Preoperative Stress test is positive for inferolateral wall ischemia and LHC did revealed 70% RCA stenosis which place her at high risk for surgery. Arrange for outpatient PCI post op. Continue aspirin, BB and Lipitor. IDDM with radiculopathy: Continue levemir and MSSI, Accu-Cheks TIDAC. HTN: Continue home medication Hypothyroidism: Continue home medication DVT prophylaxis: Subcutaneous heparin - Time Spent with Patient Total time spent is greater than 50% in coordination of care (as documented) at patient's floor/unit and/or counseling patient: Greater than 35 minutes Plan of Care Discussed with: patient Internal Medicine: Result - Labs CBC & Chem 7: 06/29/19 04:43 06/29/19 04:43 Labs: Short CBC 06/29/19 Range/Units 04:43 WBC 7.8 (4.3-11.1) K/mcL Hgb 13.3 (11.5-15.4) g/dL Hct 41.0 (35.3-44.9) % Plt Count 216 (140-400) K/mcL Neutrophils # 4.5 (1.6-8.9) K/mcL BMP 06/29/19 04:43 Sodium 136 Potassium 3.9 Chloride 101 Carbon Dioxide 28 BUN 39 H Creatinine 0.83 Glucose 214 H Calcium 9.1 - ABG Interpretation ABG results: PT/INR, D-dimer PT 11.6 Seconds (9.4-12.1) 06/25/19 09:35 Consult Discharge Plan - Plan Referrals: NONE,PCP [Primary Care Provider] - (2) Diabetes mellitus Qualifiers: Diabetes mellitus type: type 2 Diabetes mellitus terminal system operator insulin use: with shelter use Diabetes mellitus complication status: with neurologic complications Diabetes mellitus complication detail: with mononeuropathy Qualified Code(s): E11.41 - Type 2 diabetes mellitus with diabetic mononeuropathy; 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 of insulin (3) Hypertension Qualifiers: Hypertension type: essential hypertension Qualified Code(s): I10 - Essential (primary) hypertension (4) Osteoarthritis Qualifiers: Osteoarthritis location: knee Osteoarthritis type: primary Laterality: right Qualified Code(s): M17.11 - Unilateral primary osteoarthritis, right knee (5) Peripheral neuropathy Qualifiers: Peripheral neuropathy type: polyneuropathy associated with underlying disease Qualified Code(s): G63 - Polyneuropathy in diseases classified elsewhere (6) Falls Qualifiers: Encounter type: initial encounter Qualified Code(s): W19.XXXA - Unspecified fall, initial encounter (9) CAD (coronary artery disease) Qualifiers: Coronary Disease-Associated Artery/Lesion type: [place] artery [place] vs. transplanted heart: [place] heart Associated angina: with unspecified angina Qualified Code(s): I25.119 - Atherosclerotic heart disease of [place] coronary artery with unspecified angina pectoris
--- NOTE | 2019-06-29 19:35 | Spine Progress Note ---
Date of Encounter: 06/29/19 Time of Encounter: 19:32 - Assessment and Plan (1) Cervical myelopathy Current Visit: Yes Status: Chronic On exam she is lying comfortable in bed. She has weakness in the lower extremities and a positive Lauri sign. She is grossly neurovascularly intact with a bilateral upper and lower extremities otherwise. Her hips move symmetrically. She has no clonus. MRI of the cervical spine reveals multilevel degenerative changes and disc desiccation. There is severe stenosis most notable at C4-5 but extending to the C5-6 and C6-7 levels. There is spinal cord signal changes at C4-5 consistent with myelomalacia. Impression: 1) cervical stenosis 2) cervical myelopathy Plan: Due to her likelihood of neurologic progression I find it reasonable to consider surgery in the form of an anterior cervical decompression and fusion C4-C7. Risk benefits possible complications and alternatives were discussed and the patient would like to proceed. Cardiac risk has already been discussed with the patient by the cardiology service. (2) Myelomalacia of cervical cord Current Visit: Yes Status: Chronic (3) Cervical stenosis of spine Current Visit: Yes Status: Chronic Subjective Principal diagnosis: Leg weakness, difficulty with ambulation. Impaired dexterity Interval history: Ms. Jean is a 69-year-old woman is had worsening ability to ambulate, gait impairment, radicular pain and paresthesias in upper extremities. An episode where she had a whole-body spasm was unable to move temporarily. She had workup including MRI her cervical spine which showed some spinal cord signal changes, severe stenosis at multiple levels. She needs cervical decompression in order to prevent the inevitable neurologic sequela of cervical myelopathy. She has been medically optimized, but of note has coronary artery disease with 70% blockage. Due to her semiurgent need for cervical decompression the street vendor has recommended to proceed although the surgery is of high risk. Objective Vital signs: Vital Signs Temp Pulse Resp BP Pulse Ox 06/29/19 19:30 98.2 F 80 20 109/57 96 06/29/19 16:10 97.9 F 70 15 116/64 95 06/29/19 07:29 97.6 F 64 18 114/47 91 06/29/19 03:00 97.6 F 70 18 126/73 97 06/28/19 23:53 98.3 F 64 16 114/62 98 Intake and Output 06/29/19 06/29/19 06/29/19 07:59 15:59 23:59 Intake Total 460 / 700 240 / 700 Output Total 250 / 250 Balance -250 / 450 460 / 450 240 / 450 Intake: Oral 460 / 700 240 / 700 Output: Urine 250 / 250 Other: Meal Lunch Dinner Percent of Meal Consumed 100% 100% Stool Size Moderate Stool Consistency soft Stool Characteristics Normal for Patient Stool Color Brown # Voids 2 1 # Bowel Movements 1 Weight 130.3 kg Blood Glucose* 220 222 206 Patient Weight 06/29/19 23:59 Weight 130.3 kg - Labs CBC & BMP: 06/29/19 04:43 06/29/19 04:43 Labs: Abnormal lab results Carbon Dioxide 30 mEq/L (23-29) H 06/28/19 07:03 BUN 39 mg/dL (8-23) H 06/29/19 04:43 BUN/Creatinine Ratio 47 (6-26) H 06/29/19 04:43 Glucose 214 mg/dL (70-105) H 06/29/19 04:43 POC Glucose 220 mg/dL (70-99) H 06/29/19 07:34 Calculated Osmolality 301 (280-300) H 06/28/19 07:03 Consult Discharge Plan - Plan Referrals: NONE,PCP [Primary Care Provider] -
[2019-06-30] MEDS ORDERED: traMADol 50 MG TABLET PO ONE (01:53)
[2019-06-30 04:43] LABS: Basophils % 0.4 %; Eosinophils # 0.3 K/mcL (0.0-0.6); Eosinophils % 3.3 %; Hematocrit 42.6 % (35.3-44.9); Hemoglobin 13.6 g/dL (11.5-15.4); Immature Granulocytes % 0.3 % (0-4); Lymphocytes # 2.4 K/mcL (0.6-4.6); Lymphocytes % 29.9 %; Mean Corpuscular HGB Conc 31.9 g/dL (31.6-35.5); Mean Platelet Volume 10.6 fL (9.4-12.4); Monocytes % 12.7 %; Neutrophils # 4.2 K/mcL (1.6-8.9); Platelet Count 219 K/mcL (140-400); Red Blood Count 4.53 M/mcL (3.82-4.97); Red Cell Distribution Width 13.4 % (11.5-14.5); Segmented Neutrophils % 53.4 %; White Blood Count 7.9 K/mcL (4.3-11.1)
[2019-06-30] MEDS: *HR* Heparin 5,000 UNIT/ML VIAL SQ SCH ×3 (04:47→20:37)
[2019-06-30 05:09] LABS: BUN/Creatinine Ratio 48 (6-26); Blood Urea Nitrogen 41 mg/dL (8-23); Calcium 9.4 mg/dL (8.6-10.3); Carbon Dioxide 27 mEq/L (23-29); Chloride 100 mEq/L (98-107); Glucose 263 mg/dL (70-105); Magnesium 2.2 mg/dL (1.6-2.6); Osmolality,Calculated 301 (280-300); Phosphorous 4.3 mg/dL (2.7-4.5); Potassium 4.4 mEq/L (3.5-5.1); Sodium 136 mEq/L (136-145); eGFR For African Americans > 60 (> 60); eGFR For Non-African Americans > 60 (> 60)
--- NOTE | 2019-06-30 06:35 | Orthopedics Progress Note ---
Date of Encounter: 06/27/19 Time of Encounter: 12:30 - Assessment and Plan (1) Cervical myelopathy Current Visit: Yes Status: Chronic (2) Cervical radiculopathy Current Visit: Yes Status: Chronic (3) Cervical stenosis of spine Current Visit: Yes Status: Chronic Subjective Principal diagnosis: Leg weakness, difficulty with ambulation. Impaired dexterity Interval history: Patient with ongoing symptoms and unchanged physical exam Undergoing cardiology work up in anticipation for spine surgery 06/30/19 MRI images reviewed with patient NPO midnight 06/30 Objective Vital signs: Vital Signs Temp Pulse Resp BP Pulse Ox 06/30/19 03:27 97.8 F 78 20 125/72 92 06/30/19 01:52 97.9 F 69 16 108/66 93 06/29/19 22:41 97.7 F 75 20 108/66 92 06/29/19 22:24 99.3 F 82 20 147/74 94 06/29/19 19:30 98.2 F 80 20 109/57 96 06/29/19 16:10 97.9 F 70 15 116/64 95 06/29/19 07:29 97.6 F 64 18 114/47 91 Intake and Output 06/29/19 06/29/19 06/30/19 15:59 23:59 07:59 Intake Total 460 / 700 240 / 700 0 / 0 Output Total 350 / 600 Balance 460 / 100 -110 / 100 0 / 0 Intake: Oral 460 / 700 240 / 700 0 / 0 Output: Catheter 350 / 350 Other: Meal Lunch Dinner Percent of Meal Consumed 100% 100% Stool Size Moderate Stool Consistency soft Stool Characteristics Normal for Patient Stool Color Brown # Voids 1 # Bowel Movements 1 Blood Glucose* 222 277 - Labs CBC & BMP: 06/30/19 03:59 06/30/19 03:59 Labs: Abnormal lab results Carbon Dioxide 30 mEq/L (23-29) H 06/28/19 07:03 BUN 41 mg/dL (8-23) H 06/30/19 03:59 BUN/Creatinine Ratio 48 (6-26) H 06/30/19 03:59 Glucose 263 mg/dL (70-105) H 06/30/19 03:59 POC Glucose 277 mg/dL (70-99) H 06/29/19 20:04 Calculated Osmolality 301 (280-300) H 06/30/19 03:59 Consult Discharge Plan - Plan Referrals: NONE,PCP [Primary Care Provider] -
[2019-06-30] MEDS ORDERED: CeFAZolin Syr 2,000MG/20 ML 2,000 MG/20 ML SYRINGE IVPB ONE (08:00)
[2019-06-30] MEDS: Insulin LISPRO 300 UNITS/3 ML VIAL SQ SCH ×5 (08:21→18:24)
[2019-06-30] MEDS: Metoprolol XL (24 HR) Succ 50 MG TAB.ER.24H PO SCH (08:22)
[2019-06-30] MEDS: Baclofen 10 MG TABLET PO SCH (08:30)
[2019-06-30] MEDS: Insulin DETEMIR 100 UNIT/ML X5UNITS SQ SCH (08:30)
[2019-06-30] MEDS: Aspirin Enteric Coated 81 MG Tablet PO SCH (08:30)
[2019-06-30] MEDS: Cholecalciferol (D-3) 1,000 UNIT (25MCG) TABLET PO SCH (08:31)
[2019-06-30] MEDS: Vitamin E 200 UNIT (90MG) CAPSULE PO SCH (08:31)
[2019-06-30] MEDS ORDERED: *HR* Succinylcholine 200 MG/10 ML VIAL IVP ONE (10:27)
[2019-06-30] MEDS ORDERED: *HR* Remifentanil 1 MG VIAL IVP ONE ×3 (10:27→15:32)
[2019-06-30] MEDS ORDERED: *HR* Midazolam HCl 2 MG/2 ML VIAL ONE (10:28)
[2019-06-30] MEDS ORDERED: *HR* Propofol 200 MG/20 ML VIAL IVP ONE (10:28)
[2019-06-30] MEDS ORDERED: *HR* FentaNYL (PF) 100 MCG/2 ML VIAL ONE (10:28)
[2019-06-30] MEDS ORDERED: Ondansetron 4 MG/2 ML VIAL ONE ×2 (10:51→15:50)
[2019-06-30] MEDS ORDERED: Lidocaine HCL 4 ML Topical Solution (Laryng-O-Jet Kit Sterile Pak) TP ONE (10:51)
[2019-06-30] MEDS ORDERED: Lidocaine -MPF 2% 2 ML VIAL ONE (10:51)
[2019-06-30] MEDS ORDERED: *HR* Phenylephrine 10 MG/ML VIAL ONE (10:51)
[2019-06-30] MEDS ORDERED: Bacitracin 50,000 UNIT, Polymyxin B Sulfate 500,000 UNIT, Sodium Chloride IRRigation 1,... IR ONE (11:05)
[2019-06-30] MEDS ORDERED: Dexmedetomidine HCl 400 MCG/100 ML MLS IVC ONE (11:24)
[2019-06-30] MEDS ORDERED: Heparin 1,000 UNITS/500 mL 500 ML ONE (11:27)
[2019-06-30] MEDS ORDERED: *HR* HYDROMORPHONE 2 MG/ML VIAL ONE ×2 (11:27→16:01)
--- NOTE | 2019-06-30 11:38 | Internal Med Progress Note ---
Hospitalist Progress Note - Encounter Date of Encounter: 06/30/19 Time of Encounter: 10:00 - Subjective Interval History: No major events overnight. Patient was seen this a.m. sHe denied fever, chills or night sweats. sHe has no nausea, vomiting or abdominal pain. Patient denied chest pain, shortness of breath or palpitation. - Exam Vitals: Temp Pulse Resp BP Pulse Ox 97.9 F 83 16 128/76 94 06/30/19 07:00 06/30/19 07:00 06/30/19 07:00 06/30/19 07:00 06/30/19 07:00 Exam: GENERAL: Not in distress. Alert and Oriented HEENT: EOMI, PERRLA MOUTH: Moist oral mucosa NECK:No JVD, No lymph nodes. CHEST AND LUNGS: Normal breath sounds, no wheezes or crackles HEART: S1 and S2 normal, no murmurs ABDOMEN: Soft, nontender, no organomegaly SKIN: Normal color, no rahses, no lesions EXTREMITIES: No deformity, no edema, no tenderness, no joint swelling or clubbing NEUROLOGICAL: CN II-XII intact. Strength is 5/5 in upper extremities and 4/5 lower extremities - Assessment and Plan (1) Cervical myelopathy Current Visit: Yes Status: Chronic (2) Diabetes mellitus Current Visit: Yes Status: Chronic (3) Hypertension Current Visit: Yes Status: Acute (4) Osteoarthritis Current Visit: Yes Status: Acute (5) Peripheral neuropathy Current Visit: Yes Status: Acute (6) Falls Current Visit: Yes Status: Resolved (7) DVT prophylaxis Current Visit: Yes Status: Acute (8) Preoperative clearance Current Visit: Yes Status: Acute (9) CAD (coronary artery disease) Current Visit: Yes Status: Acute - Summary of Assessment and Plan Summary of Assessment and Plan: 69-year-old female with history of HTN, IDDM who was admitted for lower extremity weakness and falls. Spinal canal stenosis/ myleopathy: Moderate to severe endocervical spine with focal area of abnormal signal in the right cervical cord at C4-C5 level which could be myelomalacia or edema. Mild stenosis in the thoracic spine and moderate in the lumbar. today to OR. CAD: Preoperative Stress test is positive for inferolateral wall ischemia and LHC did revealed 70% RCA stenosis which place her at high risk for surgery. Arrange for outpatient PCI post op. Continue aspirin, BB and Lipitor. IDDM with radiculopathy: Continue levemir, increased her lispro to 12 un TID and MSSI, Accu-Cheks TIDAC. HTN: Continue home medication Hypothyroidism: Continue home medication DVT prophylaxis: Subcutaneous heparin - Time Spent with Patient Total time spent is greater than 50% in coordination of care (as documented) at patient's floor/unit and/or counseling patient: Plan of Care Discussed with: patient Internal Medicine: Result - Labs CBC & Chem 7: 06/30/19 03:59 06/30/19 03:59 Labs: Short CBC 06/30/19 Range/Units 03:59 WBC 7.9 (4.3-11.1) K/mcL Hgb 13.6 (11.5-15.4) g/dL Hct 42.6 (35.3-44.9) % Plt Count 219 (140-400) K/mcL Neutrophils # 4.2 (1.6-8.9) K/mcL BMP 06/30/19 03:59 Sodium 136 Potassium 4.4 Chloride 100 Carbon Dioxide 27 BUN 41 H Creatinine 0.86 Glucose 263 H Calcium 9.4 - ABG Interpretation ABG results: PT/INR, D-dimer PT 11.6 Seconds (9.4-12.1) 06/25/19 09:35 Consult Discharge Plan - Plan Referrals: NONE,PCP [Primary Care Provider] - (2) Diabetes mellitus Qualifiers: Diabetes mellitus type: type 2 Diabetes mellitus residential insulin use: with salvage determiner use Diabetes mellitus complication status: with neurologic complications Diabetes mellitus complication detail: with mononeuropathy Qualified Code(s): E11.41 - Type 2 diabetes mellitus with diabetic mononeuropathy; Z79.4 - lobsterman (current) use of insulin (3) Hypertension Qualifiers: Hypertension type: essential hypertension Qualified Code(s): I10 - Essential (primary) hypertension (4) Osteoarthritis Qualifiers: Osteoarthritis location: knee Osteoarthritis type: primary Laterality: right Qualified Code(s): M17.11 - Unilateral primary osteoarthritis, right knee (5) Peripheral neuropathy Qualifiers: Peripheral neuropathy type: polyneuropathy associated with underlying disease Qualified Code(s): G63 - Polyneuropathy in diseases classified elsewhere (6) Falls Qualifiers: Encounter type: initial encounter Qualified Code(s): W19.XXXA - Unspecified fall, initial encounter (9) CAD (coronary artery disease) Qualifiers: Coronary Disease-Associated Artery/Lesion type: [place] artery [place] vs. transplanted heart: [place] heart Associated angina: with unspecified angina Qualified Code(s): I25.119 - Atherosclerotic heart disease of [place] coronary artery with unspecified angina pectoris
[2019-06-30] MEDS ORDERED: Propofol 500 MG/50 ML INFUS..BTL ONE ×2 (14:11→14:22)
--- NOTE | 2019-06-30 14:37 | Anesthesia Procedures ---
Date of Encounter: 06/30/19 Time of Encounter: 12:00 Procedures: Anesthesia - Arterial Line Consent obtained: verbal consent Time out performed: Yes Supplemental Oxygen via Nasal Cannula (L/min): 2 Local Anesthetic: Lidocaine 1% Amount of Anesthetic used (mls): 0.5 Size (Gauge): 20 Length (inches): 1 3/4 Technique Used: sterile prep, direct puncture technique Post-Procedure: line taped into place, dry sterile dressing placed Patient tolerated procedure: well, no complications Complications: none Site: Radial L Vitals: Vital Signs/O2 Sat/Glucose, Most Recent Temp Pulse Resp BP Pulse Ox 97.9 F 83 16 128/76 94 06/30/19 07:00 06/30/19 07:00 06/30/19 07:00 06/30/19 07:00 06/30/19 07:00 Blood Glucose* 281 Comments: Left radial arterial catheter place per Dr Barillas on first attempt with ease. Tolerated procedure well
[2019-06-30] MEDS ORDERED: Propofol 3,000 MG/300 ML INFUS..BTL IVC ONE (14:47)
--- NOTE | 2019-06-30 16:15 | Orthopedic Operative Note ---
Date of procedure: 06/30/19 Pre-op diagnosis: Cervical stenosis, cervical myelopathy, myelomalacia cervical cord Post-op diagnosis: same Operation/Findings: Anterior cervical decompression and fusion C4-C7:Anterior cervical decompression and fusion C5-C7:The patient was brought to the operating room and placed supine on the operating room table. Successful general endotracheal anesthesia intubation was performed. Neurophysiologic monitoring personnel placed leads on the upper and lower extremities as well as the cranium for EMG monitoring purposes. Appropriate baseline potentials were noted by the neurophysiologic monitoring staff. Prather catheter was placed prior to positioning. Compression boots and deep vein thrombosis prophylaxis were also placed all bony prominences including the ulnar nerve near the medial epicondyles of the elbows were appropriately padded. Mild traction was placed on the bilateral shoulders and taped into place. Preoperative antibiotics were administered. The area from the mandible bilaterally to the upper thoraces was prepped and draped in the usual sterile fashion. A transverse incision was made at the level of the cricoid cartilage which is approximately 3 cm in length and extended from the midline of the cervical spine laterally towards the sternocleidomastoid muscle on the left. We then performed standard medial approach to the carotid sheath. Sponges were used to tease the fascial medial to the sternocleidomastoid muscle while carefully controlling and palpating the carotid artery. Using careful dissection we were able to get to the level of the anterior vertebral bodies and longus coli muscles. The spinal needle was placed at the appropriate level, and intraoperative radiograph was obtained which was a cervical spine lateral radiograph. The needle and radiograph confirmed we were at the correct operative level. We further exposed this level by using Bovie cautery under the medial edge of the longus colli muscles to allow them to be retracted approximately 2 mm laterally on each side. An 11 blade was used to perform anterior discectomy at the appropriate level after an initial annulotomy of the anterior longitudinal ligament and annulus was performed. Further disc material was removed with pituitary Rongeurs. Subsequently, Synthes pins were placed at the C6 and C7 vertebral bodies respectively to provide distraction. We then used a Trimline cervical retractor which was placed in both medial and lateral as well as inferior superior direction to allow full visualization of the appropriate disc and vertebral bodies. The Leica microscope was brought to the field and the remainder of the procedure was performed under the guidance of this microscope. Using pituitary rongeurs and small curettes, various micro- instruments, a full discectomy was performed at the appropriate C6-C7 level. The posterior longitudinal ligament was encountered and appeared partially calcified. A portion of this ligament was removed. After complete and thorough discectomy and removal of spondylitic material was performed the endplates of the vertebral bodies were prepared with a bur until allow bleeding of cancellous bone. A 8mm trial graft was evaluated and appeared to fit quite well within the excised C6-7 disc space. A cortico-cancellous allograft of 8 mm was utilized, carefully tapped into place within the excised disc space with the aid of a bone tamp. It was seated approximately 2 mm from the anterior edge of the cortex of the adjacent vertebral bodies. We then turned our attention to the C5-6 level where a similar series of procedures was performed including discectomy, removal of spondylitic material, end plate preparation, and trial graftig. An 8mm trial fit well within the C5-6 disc space. A 8 mm allograft was then placed at C5-6. A cervical plate was then placed on the anterior aspect of the C5, C6, and C7 vertebral bodies. The plate was placed in the midline position after drilling six 13 mm self tapping screws and inserting them. They were locked in place using standard Venture plate maneuvers. At this point a lateral radiograph of the cervical spine was obtained and showed satisfactory position of the graft and plate. The wound was copiously irrigated and bleeders encountered were cauterized using Bovie cautery. Platysma was closed with interrupted 2-0 Vicryl sutures. Running 3-0 Monocryl suture was used for skin closure. Sterile dressing was placed over the neck wound. A cervical collar was placed. The patient was transferred to a hospital bed and extubated. The patient was noted to be fully motor and sensory intact in the recovery room at the end of the procedure. The medications. All sponge instrument and needle counts were correct at the end of the procedure. Anesthesia: GETA Surgeon: Ric Lugo Jr Was there an assistant teacher primary present: No Estimated blood loss (cc): 20 Specimen: None Condition: stable Disposition: PACU
[2019-06-30] MEDS ORDERED: *HR* OxyCODONE Immed Rel 5 MG TABLET PO PRN (16:19)
[2019-06-30] MEDS ORDERED: *HR* Promethazine 25 MG/ML VIAL IVP PRN (16:19)
[2019-06-30] MEDS ORDERED: *HR* Labetalol 20 MG/4 ML SYRINGE IVP PRN (16:19)
[2019-06-30] MEDS ORDERED: Ondansetron 4 MG/2 ML VIAL IVP ONE (16:19)
[2019-06-30] MEDS ORDERED: *HR* HYDROmorphone (PF) 1 MG/ML SYRINGE IVP PRN (16:19)
--- NOTE | 2019-06-30 18:17 | Anesthesia Evaluation Post Op ---
Date of Encounter: 06/30/19 Time of Encounter: 18:15 - Vital Signs Vital Signs: Vital Signs/O2 Sat/Glucose, Most Current Temp Pulse Resp BP Pulse Ox 06/30/19 17:46 98.8 F 68 15 139/57 95 06/30/19 17:36 98.5 F 69 12 140/68 94 06/30/19 17:26 76 12 123/70 93 06/30/19 17:16 70 12 127/57 93 06/30/19 17:06 98.5 F 98 12 130/66 94 06/30/19 16:56 99 18 126/63 93 06/30/19 16:46 89 16 129/73 97 06/30/19 16:36 98.9 F 69 12 123/49 97 - Lungs Lungs: Clear Ascult./Percussion - Airway Airway: Non-obstructed - Cardiovascular Regular Rate - Mental Status Mental Status: Alert & Oriented, Answers Appropriately - Pain Pain Scale: 0 - Nausea Vomiting Nausea Vomiting: Not Present - Hydration Hydration: Tolerates oral liquids - Discharge PostOp Status: Discharge Patient to home
[2019-06-30] MEDS ORDERED: Acetaminophen 325 MG TABLET PO PRN (18:41)
[2019-06-30] MEDS ORDERED: Ringers Solution, Lactated 1,000 ML IVC SCH (18:41)
[2019-06-30] MEDS ORDERED: Naloxone 0.4 MG/ML INJ IVP PRN (18:41)
[2019-06-30] MEDS ORDERED: Ondansetron 4 MG/2 ML VIAL IVP PRN (18:41)
[2019-06-30] MEDS ORDERED: D5% in Water 1,000 ML IVC PRN (19:44)
[2019-06-30] MEDS ORDERED: *HR* Dextrose 50 % in Water (Syg) 50 ML SYRINGE IVP PRN (19:44)
[2019-06-30] MEDS ORDERED: Dextrose Gel 15 GM/37.5 ML TUBE PO PRN ×2 (19:44)
[2019-06-30] MEDS ORDERED: Insulin DETEMIR 100 UNIT/ML X5UNITS SQ SCH (21:00)
[2019-06-30] MEDS ORDERED: Insulin LISPRO 300 UNITS/3 ML VIAL SQ SCH (21:00)
[2019-06-30] MEDS: *HR* OxyCODONE Immed Rel 5 MG TABLET PO PRN (22:15)
[2019-07-01] MEDS: *HR* Heparin 5,000 UNIT/ML VIAL SQ SCH ×3 (04:39→21:47)
[2019-07-01] MEDS: *HR* OxyCODONE Immed Rel 5 MG TABLET PO PRN ×4 (04:44→21:46)
[2019-07-01 05:15] LABS: Hematocrit 40.1 % (35.3-44.9); Hemoglobin 13.2 g/dL (11.5-15.4); Mean Corpuscular HGB Conc 32.9 g/dL (31.6-35.5); Mean Corpuscular Hemoglobin 29.9 pg (28.0-33.3); Mean Corpuscular Volume 90.7 fL (83.0-100.0); Mean Platelet Volume 11.4 fL (9.4-12.4); Platelet Count 168 K/mcL (140-400); Red Blood Count 4.42 M/mcL (3.82-4.97); Red Cell Distribution Width 12.9 % (11.5-14.5)
[2019-07-01 05:19] LABS: White Blood Count 12.1 K/mcL (4.3-11.1)
[2019-07-01 05:25] LABS: BUN/Creatinine Ratio 32 (6-26); Blood Urea Nitrogen 21 mg/dL (8-23); Calcium 8.7 mg/dL (8.6-10.3); Carbon Dioxide 21 mEq/L (23-29); Chloride 102 mEq/L (98-107); Glucose 278 mg/dL (70-105); Osmolality,Calculated 291 (280-300); Potassium 5.1 mEq/L (3.5-5.1); Sodium 134 mEq/L (136-145); eGFR For African Americans > 60 (> 60); eGFR For Non-African Americans > 60 (> 60)
--- NOTE | 2019-07-01 07:35 | Event Note ---
Date of Encounter: 03/30/19 Time of Encounter: 13:00 I was called into the OR to place a azul catheter. The patient was obese. I was able to place a 16 Sami Azul catheter and clear urine returned. The case was turned over to Spine surgery.
[2019-07-01] MEDS: Insulin LISPRO 300 UNITS/3 ML VIAL SQ SCH ×4 (09:23→21:48)
[2019-07-01] MEDS: Metoprolol 100 MG TABLET PO SCH (09:23)
[2019-07-01] MEDS: Aspirin Enteric Coated 81 MG Tablet PO SCH (09:23)
[2019-07-01] MEDS: Insulin DETEMIR 100 UNIT/ML X5UNITS SQ SCH ×2 (09:24→21:47)
[2019-07-01] MEDS: traMADol 50 MG TABLET PO PRN (11:41)
--- NOTE | 2019-07-01 12:07 | Orthopedics Progress Note ---
Date of Encounter: 07/01/19 Time of Encounter: 12:00 - Assessment and Plan (1) Cervical myelopathy Current Visit: Yes Status: Resolved (2) Cervical radiculopathy Current Visit: Yes Status: Chronic (3) Cervical stenosis of spine Current Visit: Yes Status: Chronic (4) Myelomalacia of cervical cord Current Visit: Yes Status: Chronic (5) Status post cervical spinal fusion Current Visit: Yes Status: Acute Subjective Principal diagnosis: Leg weakness, difficulty with ambulation. Impaired dexterity Interval history: POD#1 s/p Anterior cervical decompression and fusion C4-C7 [Cervical stenosis, cervical myelopathy, myelomalacia cervical cord] 06/30/19 Patient seen at bedside. Patient states feeling very weak and tired today. However, states her "tailbone" doesn't hurt as intensely as prior to surgery. A&Ox3 Dressing and incision c/d/i No calf tenderness, erythema, or warmth. Sensation intact all extremities. Labwork, vitals, and medications reviewed. Pain control: Adequate Participating in therapy. All questions and concerns addressed. Educated on use of incentive spirometer, ambulation, and hydration. Patient educated on post-operative restrictions and care. Addressed: see above. Patient course and disposition discussed with Dr. Lugo D/C plan: awaiting medical clearance and acceptance Objective Vital signs: Vital Signs Temp Pulse Resp BP Pulse Ox 07/01/19 11:34 97.8 F 71 16 122/69 94 07/01/19 07:50 98.7 F 86 16 149/66 93 07/01/19 04:41 98.5 F 84 17 128/70 92 06/30/19 23:10 98.5 F 82 18 148/67 98 06/30/19 21:00 98.1 F 74 18 133/80 98 06/30/19 20:45 97 06/30/19 20:00 98.0 F 73 16 139/80 97 06/30/19 19:00 98.2 F 72 18 139/80 96 06/30/19 18:54 98.0 F 69 17 137/80 95 06/30/19 18:30 98 F 70 18 136/76 94 06/30/19 17:46 98.8 F 68 15 139/57 95 06/30/19 17:36 98.5 F 69 12 140/68 94 06/30/19 17:26 76 12 123/70 93 06/30/19 17:16 70 12 127/57 93 06/30/19 17:06 98.5 F 98 12 130/66 94 06/30/19 16:56 99 18 126/63 93 06/30/19 16:46 89 16 129/73 97 06/30/19 16:36 98.9 F 69 12 123/49 97 Intake and Output 06/30/19 07/01/19 07/01/19 23:59 07:59 15:59 Intake Total 100 / 120 500 / 500 Output Total 1645 / 1645 750 / 750 Balance -1545 / -1525 -250 / -250 Intake: IV Fluids 100 / 120 100 / 100 Ancef 2,000 MG In 0.9 % Sodium 100 / 100 100 / 100 Chloride 100 ML @ 200 mls/hr IVPB Q8H [facility] Rx#:[id number] Oral 400 / 400 Output: Urine 600 / 600 Estimated Blood Loss 20 / 20 Urine Amount (Catheter) 325 / 325 Catheter 700 / 700 750 / 750 Other: Weight 130.4 kg Blood Glucose* 272 281 267 Patient Weight 07/01/19 23:59 Weight 130.4 kg - Labs CBC & BMP: 07/02/19 06:07 07/02/19 06:07 Labs: Abnormal lab results WBC 12.1 K/mcL (4.3-11.1) H D 07/01/19 04:59 Sodium 134 mEq/L (136-145) L 07/01/19 04:59 Carbon Dioxide 21 mEq/L (23-29) L 07/01/19 04:59 BUN 41 mg/dL (8-23) H 06/30/19 03:59 BUN/Creatinine Ratio 32 (6-26) H 07/01/19 04:59 Glucose 278 mg/dL (70-105) H 07/01/19 04:59 POC Glucose 272 mg/dL (70-99) H 06/30/19 19:44 Calculated Osmolality 301 (280-300) H 06/30/19 03:59 Consult Discharge Plan - Plan Referrals: Milli Henley PAC [Physician Cement Kiln Operator] - 07/15/19 9:30 am Nicola Crsytal MD [Partnered Physician] - 07/09/19 ([facility] on 07/09) Madeleine Galvez CNP [Advanced Practice Nurse] - 07/21/19 10:00 am Ric Lugo Jr, MD [Partnered Physician] - NONE,PCP [Primary Care Provider] - Prescriptions: Docusate Sodium [Colace] 100 mg PO BID 5 Days #10 capsule Prescription Printed Polyethylene Glycol 3350 [MiraLAX] 17 gm PO BID 10 Days #20 powd.pack Prescription Printed OxyCODONE Immed Rel [Roxicodone 5 MG] 5 mg PO Q6HR PRN 5 Days #20 tablet PRN Reason: Severe Pain Prescription Printed
--- NOTE | 2019-07-01 12:36 | Internal Med Progress Note ---
Hospitalist Progress Note - Encounter Date of Encounter: 07/01/19 Time of Encounter: 11:20 - Subjective Interval History: Patient was seen this morning, she feels weak and tired after her surgery. She denied any chest pain, shortness of breath or palpitation. - Exam Vitals: Temp Pulse Resp BP Pulse Ox 97.8 F 71 16 122/69 94 07/01/19 11:34 07/01/19 11:34 07/01/19 11:34 07/01/19 11:34 07/01/19 11:34 Exam: GENERAL: Mild distress. Alert and Oriented HEENT: EOMI, PERRLA MOUTH: Moist oral mucosa NECK:No JVD, No lymph nodes. CHEST AND LUNGS: Normal breath sounds, no wheezes or crackles HEART: S1 and S2 normal, no murmurs ABDOMEN: Soft, nontender, no organomegaly SKIN: Normal color, no rahses, no lesions EXTREMITIES: No deformity, no edema, no tenderness, no joint swelling or clubbing NEUROLOGICAL: CN II-XII intact. Strength is 2/5 in upper extremities and 3/5 lower extremities - Assessment and Plan (1) Cervical myelopathy Current Visit: Yes Status: Chronic (2) Diabetes mellitus Current Visit: Yes Status: Chronic (3) Hypertension Current Visit: Yes Status: Acute (4) Osteoarthritis Current Visit: Yes Status: Acute (5) Peripheral neuropathy Current Visit: Yes Status: Acute (6) Falls Current Visit: Yes Status: Resolved (7) DVT prophylaxis Current Visit: Yes Status: Acute (8) Preoperative clearance Current Visit: Yes Status: Acute (9) CAD (coronary artery disease) Current Visit: Yes Status: Acute - Summary of Assessment and Plan Summary of Assessment and Plan: 69-year-old female with history of HTN, IDDM who was admitted for lower extremity weakness and falls. Spinal canal stenosis/ myleopathy:s/p C4-C7 decompression and fusion, POD 1. Moderate to severe endocervical spine with focal area of abnormal signal in the right cervical cord at C4-C5 level which could be myelomalacia or edema. Mild stenosis in the thoracic spine and moderate in the lumbar. Orthopedic surgery on board. Pain management as per orthopedic service. Leukocytosis: Likely reactive after surgery. Patient is afebrile. Check CBC tomorrow CAD: Preoperative Stress test is positive for inferolateral wall ischemia and LHC did revealed 70% RCA stenosis which place her at high risk for surgery. Arrange for outpatient PCI post op. Continue aspirin, BB and Lipitor. IDDM with radiculopathy: Increased levemir to 60u BID, increased her lispro to 12 un TID and hSSI, Accu-Cheks TIDAC. HTN: Continue home medication Hypothyroidism: Continue home medication DVT prophylaxis: Subcutaneous heparin - Time Spent with Patient Total time spent is greater than 50% in coordination of care (as documented) at patient's floor/unit and/or counseling patient: Plan of Care Discussed with: patient Internal Medicine: Result - Labs CBC & Chem 7: 07/01/19 04:59 07/01/19 04:59 Labs: Short CBC 07/01/19 Range/Units 04:59 WBC 12.1 H D (4.3-11.1) K/mcL Hgb 13.2 (11.5-15.4) g/dL Hct 40.1 (35.3-44.9) % Plt Count 168 (140-400) K/mcL BMP 07/01/19 04:59 Sodium 134 L Potassium 5.1 Chloride 102 Carbon Dioxide 21 L BUN 21 Creatinine 0.66 Glucose 278 H Calcium 8.7 - ABG Interpretation ABG results: PT/INR, D-dimer PT 11.6 Seconds (9.4-12.1) 06/25/19 09:35 - Impressions Impressions Fluoroscopy 06/30/19 16:41 IMPRESSION: Intraprocedural fluoroscopic spot images as above. See separate procedure report for more information. D/ / Jaye Murdock MD / Jaye Murdock MD Interpreting Provider: Jaye Murdock MD Consult Discharge Plan - Plan Referrals: NONE,PCP [Primary Care Provider] - Prescriptions: Docusate Sodium [Colace] 100 mg PO BID 5 Days #10 capsule Prescription Printed OxyCODONE Immed Rel [Roxicodone 5 MG] 5 mg PO Q6HR PRN 5 Days #20 tablet PRN Reason: Severe Pain Prescription Printed (2) Diabetes mellitus Qualifiers: Diabetes mellitus type: type 2 Diabetes mellitus oil heaterman insulin use: with shelter use Diabetes mellitus complication status: with neurologic complications Diabetes mellitus complication detail: with mononeuropathy Qualified Code(s): E11.41 - Type 2 diabetes mellitus with diabetic mononeuropathy; Z79.4 - prison (current) use of insulin (3) Hypertension Qualifiers: Hypertension type: essential hypertension Qualified Code(s): I10 - Essential (primary) hypertension (4) Osteoarthritis Qualifiers: Osteoarthritis location: knee Osteoarthritis type: primary Laterality: right Qualified Code(s): M17.11 - Unilateral primary osteoarthritis, right knee (5) Peripheral neuropathy Qualifiers: Peripheral neuropathy type: polyneuropathy associated with underlying disease Qualified Code(s): G63 - Polyneuropathy in diseases classified elsewhere (6) Falls Qualifiers: Encounter type: initial encounter Qualified Code(s): W19.XXXA - Unspecified fall, initial encounter (9) CAD (coronary artery disease) Qualifiers: Coronary Disease-Associated Artery/Lesion type: [place] artery [place] vs. transplanted heart: [place] heart Associated angina: with unspecified angina Qualified Code(s): I25.119 - Atherosclerotic heart disease of [place] coronary artery with unspecified angina pectoris
--- NOTE | 2019-07-01 16:01 | Electrocardiograph Report ---
[address] [place], [place] [address] Test Date: 2019-06-30 Pat Name: Clary Tobias Department: 101 Room: [facility] Gender: F Automatic Profile Shaper Operator: : 1950 Requested By: Florencio Hay Order Number: [id number] Reading MD: Eleonora Liao Measurements Intervals [place] Rate: 98 P: 36 IA: 289 QRS: 26 QRSD: 98 T: 61 QT: 400 QTc: 455 Interpretive Statements SINUS RHYTHM WITH MARKED SINUS ARRHYTHMIA WITH FIRST DEGREE AV BLOCK POSSIBLE ANTERIOR MYOCARDIAL INFARCTION, PROBABLY OLD Electronically Signed On 07-01-2019 15:59:44 EDT by Eleonora Liao
[2019-07-02] MEDS ORDERED: *HR* FentaNYL (PF) 100 MCG/2 ML VIAL IVP ONE (01:04)
[2019-07-02] MEDS ORDERED: Ketorolac 30 MG/ML VIAL IVP ONE (01:06)
[2019-07-02] MEDS: *HR* OxyCODONE Immed Rel 5 MG TABLET PO PRN ×3 (01:32→20:18)
[2019-07-02 06:39] LABS: Hematocrit 38.2 % (35.3-44.9); Hemoglobin 12.6 g/dL (11.5-15.4); Mean Corpuscular Hemoglobin 30.3 pg (28.0-33.3); Mean Corpuscular Volume 91.8 fL (83.0-100.0); Mean Platelet Volume 10.8 fL (9.4-12.4); Platelet Count 182 K/mcL (140-400); Red Blood Count 4.16 M/mcL (3.82-4.97); Red Cell Distribution Width 13.3 % (11.5-14.5); White Blood Count 8.3 K/mcL (4.3-11.1)
[2019-07-02] MEDS: *HR* Heparin 5,000 UNIT/ML VIAL SQ SCH ×3 (06:55→20:18)
[2019-07-02] MEDS: traMADol 50 MG TABLET PO PRN (06:57)
[2019-07-02 07:03] LABS: BUN/Creatinine Ratio 28 (6-26); Blood Urea Nitrogen 19 mg/dL (8-23); Carbon Dioxide 31 mEq/L (23-29); Chloride 97 mEq/L (98-107); Glucose 260 mg/dL (70-105); Osmolality,Calculated 291 (280-300); Potassium 4.3 mEq/L (3.5-5.1); Sodium 135 mEq/L (136-145); eGFR For African Americans > 60 (> 60); eGFR For Non-African Americans > 60 (> 60)
--- NOTE | 2019-07-02 08:30 | Orthopedics Progress Note ---
Date of Encounter: 07/02/19 Time of Encounter: 08:30 - Assessment and Plan (1) Status post cervical spinal fusion Status: Acute (2) Cervical myelopathy Status: Resolved (3) Cervical radiculopathy Status: Chronic (4) Cervical stenosis of spine Status: Chronic (5) Myelomalacia of cervical cord Status: Acute Subjective Principal diagnosis: Leg weakness, difficulty with ambulation. Impaired dexterity Interval history: POD#2 s/p Anterior cervical decompression and fusion C4-C7 [Cervical stenosis, cervical myelopathy, myelomalacia cervical cord] 06/30/19 Patient seen at bedside. Patient states feeling stronger today and states was able to stand on the EZ stand today. States her "tailbone" doesn't hurt as intensely as prior to surgery. A&Ox3 Dressing and incision c/d/i No calf tenderness, erythema, or warmth. Sensation intact all extremities. Labwork, vitals, and medications reviewed. Pain control: Adequate Participating in therapy. All questions and concerns addressed. Educated on use of incentive spirometer, ambulation, and hydration. Patient educated on post-operative restrictions and care. Addressed: see above. Patient course and disposition discussed with Dr. Lugo D/C plan: awaiting medical clearance and acceptance Objective Vital signs: Vital Signs Temp Pulse Resp BP Pulse Ox 07/02/19 06:39 98.4 F 74 18 130/78 94 07/02/19 00:18 98.7 F 69 18 155/68 93 07/01/19 18:58 98.6 F 72 17 152/66 92 07/01/19 16:36 98.0 F 82 16 134/70 93 07/01/19 11:34 97.8 F 71 16 122/69 94 Intake and Output 07/01/19 07/02/19 07/02/19 23:59 07:59 15:59 Intake Total 120 / 1320 Output Total 400 / 1150 1200 / 1200 Balance -280 / 170 -1200 / -1200 Intake: Oral 120 / 520 Output: Urine 400 / 400 Straight Cath 1200 / 1200 Other: Meal Dinner Percent of Meal Consumed 75% # Voids 1 Weight 130.3 kg Blood Glucose* 273 205 Patient Weight 07/02/19 23:59 Weight 130.3 kg - Labs CBC & BMP: 07/02/19 06:07 07/02/19 06:07 Labs: Abnormal lab results WBC 12.1 K/mcL (4.3-11.1) H D 07/01/19 04:59 Sodium 135 mEq/L (136-145) L 07/02/19 06:07 Chloride 97 mEq/L (98-107) L 07/02/19 06:07 Carbon Dioxide 31 mEq/L (23-29) H 07/02/19 06:07 BUN 41 mg/dL (8-23) H 06/30/19 03:59 BUN/Creatinine Ratio 28 (6-26) H 07/02/19 06:07 Glucose 260 mg/dL (70-105) H 07/02/19 06:07 POC Glucose 273 mg/dL (70-99) H 07/01/19 19:57 Calculated Osmolality 301 (280-300) H 06/30/19 03:59 Consult Discharge Plan - Plan Referrals: Milli Henley PAC [Physician Facility Rehab Director] - 07/15/19 9:30 am Nicola Crystal MD [Partnered Physician] - 07/09/19 ([facility] on 07/09) Madeleine Galvez CNP [Advanced Practice Nurse] - 07/21/19 10:00 am Ric Lugo Jr, MD [Partnered Physician] - NONE,PCP [Primary Care Provider] - Prescriptions: Docusate Sodium [Colace] 100 mg PO BID 5 Days #10 capsule Prescription Printed Polyethylene Glycol 3350 [MiraLAX] 17 gm PO BID 10 Days #20 powd.pack Prescription Printed OxyCODONE Immed Rel [Roxicodone 5 MG] 5 mg PO Q6HR PRN 5 Days #20 tablet PRN Reason: Severe Pain Prescription Printed
[2019-07-02] MEDS: Metoprolol 100 MG TABLET PO SCH (08:54)
[2019-07-02] MEDS: Aspirin Enteric Coated 81 MG Tablet PO SCH (08:55)
[2019-07-02] MEDS: Insulin DETEMIR 100 UNIT/ML X5UNITS SQ SCH ×2 (08:55→20:18)
[2019-07-02] MEDS: Insulin LISPRO 300 UNITS/3 ML VIAL SQ SCH ×6 (08:55→20:19)
--- NOTE | 2019-07-02 10:37 | Internal Med Progress Note ---
Hospitalist Progress Note - Encounter Date of Encounter: 07/02/19 Time of Encounter: 09:40 - Subjective Interval History: No events overnight. Patient seems stronger today and able to move her upper extremity better compared to yesterday. She denied chest pain, shortness of breath or palpitation. She had no nausea vomiting or abdominal pain. She had not have a bowel movement for 3 days. - Exam Vitals: Temp Pulse Resp BP Pulse Ox 98.4 F 74 18 130/78 94 07/02/19 06:39 07/02/19 06:39 07/02/19 06:39 07/02/19 06:39 07/02/19 06:39 Exam: GENERAL: Mild distress. Alert and Oriented HEENT: EOMI, PERRLA MOUTH: Moist oral mucosa NECK:No JVD, No lymph nodes. CHEST AND LUNGS: Normal breath sounds, no wheezes or crackles HEART: S1 and S2 normal, no murmurs ABDOMEN: Soft, nontender, no organomegaly SKIN: Normal color, no rahses, no lesions EXTREMITIES: No deformity, no edema, no tenderness, no joint swelling or clubbing NEUROLOGICAL: CN II-XII intact. Strength is 4/5 in upper extremities and 4/5 lower extremities - Assessment and Plan (1) Cervical myelopathy Current Visit: Yes Status: Resolved (2) Diabetes mellitus Current Visit: Yes Status: Chronic (3) Hypertension Current Visit: Yes Status: Chronic (4) Osteoarthritis Current Visit: Yes Status: Chronic (5) Peripheral neuropathy Current Visit: Yes Status: Acute (6) Falls Current Visit: Yes Status: Resolved (7) DVT prophylaxis Current Visit: Yes Status: Acute (8) Preoperative clearance Current Visit: Yes Status: Acute (9) CAD (coronary artery disease) Current Visit: Yes Status: Acute - Summary of Assessment and Plan Summary of Assessment and Plan: 69-year-old female with history of HTN, IDDM who was admitted for lower extremity weakness and falls. Spinal canal stenosis/ myleopathy:s/p C4-C7 decompression and fusion, POD 2. Orthopedic surgery on board. Pain management as per orthopedic service. pt/ot on board. Started miralax for BMs. Leukocytosis: resolved. CAD: Preoperative Stress test is positive for inferolateral wall ischemia and LHC did revealed 70% RCA stenosis which place her at high risk for surgery. Arrange for outpatient PCI post op. Continue aspirin, BB and Lipitor. IDDM with radiculopathy: on levemir to 60u BID, lispro 10 un TID and hSSI, Accu-Cheks TIDAC. HTN: Continue home medication, controlled Hypothyroidism: Continue home medication DVT prophylaxis: Subcutaneous heparin - Time Spent with Patient Total time spent is greater than 50% in coordination of care (as documented) at patient's floor/unit and/or counseling patient: Plan of Care Discussed with: patient Internal Medicine: Result - Labs CBC & Chem 7: 07/02/19 06:07 07/02/19 06:07 Labs: Short CBC 07/02/19 Range/Units 06:07 WBC 8.3 (4.3-11.1) K/mcL Hgb 12.6 (11.5-15.4) g/dL Hct 38.2 (35.3-44.9) % Plt Count 182 (140-400) K/mcL BMP 07/02/19 06:07 Sodium 135 L Potassium 4.3 Chloride 97 L Carbon Dioxide 31 H BUN 19 Creatinine 0.69 Glucose 260 H Calcium 9.0 - ABG Interpretation ABG results: PT/INR, D-dimer PT 11.6 Seconds (9.4-12.1) 06/25/19 09:35 - Impressions Impressions Cervical Spine X-Ray 07/01/19 17:27 IMPRESSION: Sequelae of anterior cervical discectomy and fusion from C4-C7. Nonvisualization of the inferior aspect of the orthopedic hardware on the lateral radiograph or the cervicothoracic junction due to obscuration by overlying structures. D/ / Chau Sow MD / Chau Sow MD Interpreting Provider: Chau Sow MD Consult Discharge Plan - Plan Referrals: NONE,PCP [Primary Care Provider] - Prescriptions: Docusate Sodium [Colace] 100 mg PO BID 5 Days #10 capsule Prescription Printed OxyCODONE Immed Rel [Roxicodone 5 MG] 5 mg PO Q6HR PRN 5 Days #20 tablet PRN Reason: Severe Pain Prescription Printed (2) Diabetes mellitus Qualifiers: Diabetes mellitus type: type 2 Diabetes mellitus penitentiary insulin use: with predatory animal exterminator use Diabetes mellitus complication status: with neurologic complications Diabetes mellitus complication detail: with mononeuropathy Q ualified Code(s): E11.41 - Type 2 diabetes mellitus with diabetic mononeuropathy; Z79.4 - joint terminal attack controller (current) use of insulin (3) Hypertension Qualifiers: Hypertension type: essential hypertension Qualified Code(s): I10 - Essential (primary) hypertension (4) Osteoarthritis Qualifiers: Osteoarthritis location: knee Osteoarthritis type: primary Laterality: right Qualified Code(s): M17.11 - Unilateral primary osteoarthritis, right knee (5) Peripheral neuropathy Qualifiers: Peripheral neuropathy type: polyneuropathy associated with underlying disease Qualified Code(s): G63 - Polyneuropathy in diseases classified elsewhere (6) Falls Qualifiers: Encounter type: initial encounter Qualified Code(s): W19.XXXA - Unspecified fall, initial encounter (9) CAD (coronary artery disease) Qualifiers: Coronary Disease-Associated Artery/Lesion type: [place] artery [place] vs. transplanted heart: [place] heart Associated angina: with unspecified angina Qualified Code(s): I25.119 - Atherosclerotic heart disease of [place] coronary artery with unspecified angina pectoris
[2019-07-03] MEDS: *HR* Heparin 5,000 UNIT/ML VIAL SQ SCH ×3 (05:45→21:36)
[2019-07-03] MEDS: *HR* OxyCODONE Immed Rel 5 MG TABLET PO PRN ×4 (05:50→21:35)
[2019-07-03] MEDS: Insulin LISPRO 300 UNITS/3 ML VIAL SQ SCH ×6 (09:10→21:36)
[2019-07-03] MEDS: Insulin DETEMIR 100 UNIT/ML X5UNITS SQ SCH ×2 (09:11→21:36)
[2019-07-03] MEDS: Metoprolol 100 MG TABLET PO SCH (09:11)
[2019-07-03] MEDS: Aspirin Enteric Coated 81 MG Tablet PO SCH (09:12)
--- NOTE | 2019-07-03 10:55 | Internal Med Progress Note ---
Hospitalist Progress Note - Encounter Date of Encounter: 07/03/19 Time of Encounter: 09:15 - Subjective Interval History: No major events overnight. Patient was seen this a.m. sHe denied fever, chills or night sweats. sHe has no nausea, vomiting or abdominal pain. Patient denied chest pain, shortness of breath or palpitation. - Exam Vitals: Temp Pulse Resp BP Pulse Ox 97.7 F 86 17 118/71 96 07/03/19 07:44 07/03/19 07:44 07/03/19 07:44 07/03/19 07:44 07/03/19 07:44 Exam: GENERAL: Mild distress. Alert and Oriented HEENT: EOMI, PERRLA MOUTH: Moist oral mucosa NECK:No JVD, No lymph nodes. CHEST AND LUNGS: Normal breath sounds, no wheezes or crackles HEART: S1 and S2 normal, no murmurs ABDOMEN: Soft, nontender, no organomegaly SKIN: Normal color, no rahses, no lesions EXTREMITIES: No deformity, no edema, no tenderness, no joint swelling or clubbing NEUROLOGICAL: CN II-XII intact. Strength is 4/5 in upper extremities and 4/5 lower extremities - Assessment and Plan (1) Cervical myelopathy Current Visit: Yes Status: Resolved (2) Diabetes mellitus Current Visit: Yes Status: Chronic (3) Hypertension Current Visit: Yes Status: Chronic (4) Osteoarthritis Current Visit: Yes Status: Chronic (5) Peripheral neuropathy Current Visit: Yes Status: Acute (6) Falls Current Visit: Yes Status: Resolved (7) DVT prophylaxis Current Visit: Yes Status: Acute (8) Preoperative clearance Current Visit: Yes Status: Acute (9) CAD (coronary artery disease) Current Visit: Yes Status: Acute - Summary of Assessment and Plan Summary of Assessment and Plan: 69-year-old female with history of HTN, IDDM who was admitted for lower extremity weakness and falls. Spinal canal stenosis/ myleopathy:s/p C4-C7 decompression and fusion, POD 3. Orthopedic surgery on board. Pain management as per orthopedic service. pt/ot on board. On miralax for BMs. Leukocytosis: resolved. CAD: Preoperative Stress test is positive for inferolateral wall ischemia and LHC did revealed 70% RCA stenosis which place her at high risk for surgery. Arrange for outpatient PCI post op. Continue aspirin, BB and Lipitor. IDDM with radiculopathy: on levemir to 60u BID, increased lispro to 14 units TID and hSSI, Accu-Cheks TIDAC. HTN: Continue home medication, controlled Hypothyroidism: Continue home medication DVT prophylaxis: Subcutaneous heparin - Time Spent with Patient Total time spent is greater than 50% in coordination of care (as documented) at patient's floor/unit and/or counseling patient: Plan of Care Discussed with: patient Internal Medicine: Result - Labs CBC & Chem 7: 07/02/19 06:07 07/02/19 06:07 Labs: Cardiac Enzymes 07/02/19 Range/Units 23:07 Troponin I < 0.03 (< 0.04) ng/mL - ABG Interpretation ABG results: PT/INR, D-dimer PT 11.6 Seconds (9.4-12.1) 06/25/19 09:35 Consult Discharge Plan - Plan Referrals: NONE,PCP [Primary Care Provider] - Prescriptions: Docusate Sodium [Colace] 100 mg PO BID 5 Days #10 capsule Prescription Printed OxyCODONE Immed Rel [Roxicodone 5 MG] 5 mg PO Q6HR PRN 5 Days #20 tablet PRN Reason: Severe Pain Prescription Printed (2) Diabetes mellitus Qualifiers: Diabetes mellitus type: type 2 Diabetes mellitus termite technician insulin use: with termite technician use Diabetes mellitus complication status: with neurologic complications Diabetes mellitus complication detail: with mononeuropathy Qualified Code(s): E11.41 - Type 2 diabetes mellitus with diabetic mononeuropathy; Z79.4 - termite technician (current) use of insulin (3) Hypertension Qualifiers: Hypertension type: essential hypertension Qualified Code(s): I10 - Essential (primary) hypertension (4) Osteoarthritis Qualifiers: Osteoarthritis location: knee Osteoarthritis type: primary Laterality: right Qualified Code(s): M17.11 - Unilateral primary osteoarthritis, right knee (5) Peripheral neuropathy Qualifiers: Peripheral neuropathy type: polyneuropathy associated with underlying disease Qualified Code(s): G63 - Polyneuropathy in diseases classified elsewhere (6) Falls Qualifiers: Encounter type: initial encounter Qualified Code(s): W19.XXXA - Unspecified fall, initial encounter (9) CAD (coronary artery disease) Qualifiers: Coronary Disease-Associated Artery/Lesion type: [place] artery [place] vs. transplanted heart: [place] heart Associated angina: with unspecified angina Qualified Code(s): I25.119 - Atherosclerotic heart disease of [place] coronary artery with unspecified angina pectoris
--- NOTE | 2019-07-03 17:41 | Electrocardiograph Report ---
[address] [address] Test Date: 2019-07-02 Pat Name: Clary Tobias Department: 114 Room: [facility] Gender: F Group Manager: : [id number] Requested By: Concha Valle Order Number: [id number] Reading MD: Tito Salas Measurements Intervals [place] Rate: 78 P: 71 [place]: 219 QRS: 60 QRSD: 97 T: 68 QT: 408 QTc: 441 Interpretive Statements SINUS RHYTHM WITH FIRST DEGREE AV BLOCK Electronically Signed On 07-03-2019 17:39:57 EDT by Tito Salas
[2019-07-03] MEDS: Sennosides/Docusate Sodium TABLET PO SCH (21:35)
--- NOTE | 2019-07-04 06:46 | Orthopedics Progress Note ---
Date of Encounter: 07/04/19 Time of Encounter: 09:30 - Assessment and Plan (1) Status post cervical spinal fusion Status: Acute (2) Cervical radiculopathy Status: Chronic (3) Cervical stenosis of spine Status: Chronic (4) Myelomalacia of cervical cord Status: Chronic Subjective Principal diagnosis: Leg weakness, difficulty with ambulation. Impaired dexterity Interval history: s/p Anterior cervical decompression and fusion C4-C7 [Cervical stenosis, cervical myelopathy, myelomalacia cervical cord] 06/30/19 Patient seen at bedside. Patient states feeling stronger today and states was able to stand on the EZ stand today. States her "tailbone" doesn't hurt as intensely as prior to surgery. She relates that she is continuing to having soreness in her shoulders today - per patient believes it is from working with therapy. A&Ox3 Dressing and incision c/d/i No calf tenderness, erythema, or warmth. Sensation intact all extremities. Labwork, vitals, and medications reviewed. Pain control: Adequate Participating in therapy. All questions and concerns addressed. Educated on use of incentive spirometer, ambulation, and hydration. Patient educated on post-operative restrictions and care. Addressed: C collar with all ambulation Avoid excessive neck motion No lifting/pulling/pushing greater than 10 lbs PT/OT Avoid NSAIDs Keep outpatient follow up as scheduled Xrays reviewed demonstrating appropriate hardware positioning. Patient course and disposition discussed with Dr. Lugo D/C plan: awaiting acceptance - not appropriate for [place] in per report. Awaiting snf/ecf acceptance - possible discharge today Objective Vital signs: Vital Signs Temp Pulse Resp BP Pulse Ox 07/04/19 03:25 98.7 F 86 20 106/61 98 07/03/19 22:19 98.0 F 88 20 124/71 94 07/03/19 18:43 98.7 F 81 20 114/64 98 07/03/19 16:19 98.6 F 81 16 110/60 97 07/03/19 11:14 98.3 F 75 17 119/72 97 07/03/19 07:44 97.7 F 86 17 118/71 96 Intake and Output 07/03/19 07/03/19 07/04/19 15:59 23:59 07:59 Intake Total 900 / 1850 450 / 1850 450 / 450 Output Total 1650 / 5400 2000 / 5400 300 / 300 Balance -750 / -3550 -1550 / -3550 150 / 150 Intake: Oral 900 / 1850 450 / 1850 450 / 450 Output: Catheter 1650 / 5400 2000 / 5400 300 / 300 Other: Meal Lunch Percent of Meal Consumed 100% # Voids 1 Weight 128.7 kg Blood Glucose* 279 157 Patient Weight 07/04/19 23:59 Weight 128.7 kg - Labs CBC & BMP: 07/02/19 06:07 07/02/19 06:07 Labs: Abnormal lab results WBC 12.1 K/mcL (4.3-11.1) H D 07/01/19 04:59 Sodium 135 mEq/L (136-145) L 07/02/19 06:07 Chloride 97 mEq/L (98-107) L 07/02/19 06:07 Carbon Dioxide 31 mEq/L (23-29) H 07/02/19 06:07 BUN 41 mg/dL (8-23) H 06/30/19 03:59 BUN/Creatinine Ratio 28 (6-26) H 07/02/19 06:07 Glucose 260 mg/dL (70-105) H 07/02/19 06:07 POC Glucose 157 mg/dL (70-99) H 07/03/19 20:49 Calculated Osmolality 301 (280-300) H 06/30/19 03:59 Consult Discharge Plan - Plan Referrals: Milli Henley PAC [Physician Truck Despatcher] - 07/15/19 9:30 am Nicola Crystal MD [Partnered Physician] - 07/09/19 ([facility] on 07/09) Madeleine Galvez CNP [Advanced Practice Nurse] - 07/21/19 10:00 am Ric Lugo Jr, MD [Partnered Physician] - NONE,PCP [Primary Care Provider] - Prescriptions: Docusate Sodium [Colace] 100 mg PO BID 5 Days #10 capsule Prescription Printed Polyethylene Glycol 3350 [MiraLAX] 17 gm PO BID 10 Days #20 powd.pack Prescription Printed OxyCODONE Immed Rel [Roxicodone 5 MG] 5 mg PO Q6HR PRN 5 Days #20 tablet PRN Reason: Severe Pain Prescription Printed
[2019-07-04] MEDS: *HR* Heparin 5,000 UNIT/ML VIAL SQ SCH ×2 (07:02→15:45)
[2019-07-04] MEDS ORDERED: Methylnaltrexone 12 MG/0.6 ML SYRINGE SQ ONE (08:35)
--- NOTE | 2019-07-04 08:39 | Discharge Summary ---
- NOTES TO OUTPATIENT PROVIDER Notes to Outpatient Provider: Patient was admitted for weakness and was found to have cervical myelopathy and went under decompression and vertebra fusion. She was found to have 70% stenosis in RCA and her pre-operative evaluation and her LHC is scheduled on 07/09. Date of Encounter: 07/04/19 Time of Encounter: 08:40 - Discharge Diagnosis (1) Cervical myelopathy Priority: Primary Status: Resolved (2) Diabetes mellitus Priority: Secondary Status: Chronic Qualifiers: Diabetes mellitus type: type 2 Diabetes mellitus half-way insulin use: with half-way use Diabetes mellitus complication status: with neurologic com plications Diabetes mellitus complication detail: with mononeuropathy Qualified Code(s): E11.41 - Type 2 diabetes mellitus with diabetic mononeuro jed; Z79.4 - adjunct faculty for medical terminology (current) use of insulin (3) Hypertension Priority: Secondary Status: Chronic Qualifiers: Hypertension type: essential hypertension Qualified Code(s): I10 - Essential (primary) hypertension (4) Osteoarthritis Priority: Secondary Status: Chronic Qualifiers: Osteoarthritis location: knee Osteoarthritis type: primary Laterality: right Qualified Code(s): M17.11 - Unilateral primary osteoarthritis, right knee (5) Peripheral neuropathy Priority: Secondary Status: Acute Qualifiers: Peripheral neuropathy type: polyneuropathy associated with underlying disease Qualified Code(s): G63 - Polyneuropathy in diseases classified elsewhere (6) Falls Priority: Secondary Status: Resolved Qualifiers: Encounter type: initial encounter Qualified Code(s): W19.XXXA - Unspecified fall, initial encounter (7) DVT prophylaxis Priority: Secondary Status: Acute (8) Preoperative clearance Priority: Secondary Status: Acute (9) CAD (coronary artery disease) Priority: Secondary Status: Acute Qualifiers: Coronary Disease-Associated Artery/Lesion type: [place] artery [place] vs. transplanted heart: [place] heart Associated angina: with unspecified angina Qualified Code(s): I25.119 - Atherosclerotic heart disease of [place] coronary artery with unspecified angina pectoris Hospital course: Ms. Tobias is a 69 year old female who was managed in the hospital for cervical myelopathy s/p C4-C7 decompression and fusion done by orthopedic surgery. Her post operative course was without complication. However, her pr-Op eval was noted to be significant for RCA stenosis 70% will require LHC next week as per cardiology. Today, patient is hemodynamically stable, clinically stable. PT/OT recommended rehabilitation and she will be discharged to rehabilitation in stable condition. Discharge discussed with: patient - Time Spent with Patient Total time spent providing and/or coordinating discharge services: 45 minutes - Discharge Medications Prescriptions: New Docusate Sodium [Colace] 100 mg PO BID 5 Days #10 capsule OxyCODONE Immed Rel [Roxicodone 5 MG] 5 mg PO Q6HR PRN 5 Days #20 tablet PRN Reason: Severe Pain Polyethylene Glycol 3350 [MiraLAX] 17 gm PO BID 10 Days #20 powd.pack Continued Atorvastatin [Lipitor] 40 mg PO QPM Cholecalciferol (Vitamin D3) [Dialyvite Vitamin D] 5,000 units PO DAILY Metformin HCl [Glucophage] 1,000 mg PO BID Metoprolol Succinate [Toprol Xl] 100 mg PO DAILY Vitamin E 400 unit PO DAILY Lisinopril/Hydrochlorothiazide [Lisinopril-Hctz 20-25 mg Tab] 1 tab PO DAILY Levothyroxine Sodium [Levoxyl] 50 mcg PO DAILY Insulin Glargine,Hum.rec.anlog [Lantus Solostar] 50 unit SQ BID Insulin ASPART [Novolog Flexpen] 8 unit SQ TID Calcium Carbonate [Calcium] 600 mg PO DAILY Aspirin [Lo-Dose Aspirin EC] 81 mg PO DAILY Discontinued Potassium Chloride [K-Tab ER] 20 meq PO DAILY Docusate Sodium [Stool Softener] 100 mg PO BID PRN PRN Reason: Constipation Home Medications: Aspirin [Lo-Dose Aspirin EC] 81 mg PO DAILY 06/23/19 [History] Calcium Carbonate [Calcium] 600 mg PO DAILY 06/23/19 [History] Insulin ASPART [Novolog Flexpen] 8 unit SQ TID 06/23/19 [History] Insulin Glargine,Hum.rec.anlog [Lantus Solostar] 50 unit SQ BID 06/23/19 [History] Levothyroxine Sodium [Levoxyl] 50 mcg PO DAILY 06/23/19 [History] Lisinopril/Hydrochlorothiazide [Lisinopril-Hctz 20-25 mg Tab] 1 tab PO DAILY 06/23/19 [History] Vitamin E 400 unit PO DAILY 06/23/19 [History] Atorvastatin [Lipitor] 40 mg PO QPM 06/24/19 [History] Cholecalciferol (Vitamin D3) [Dialyvite Vitamin D] 5,000 units PO DAILY 06/24/19 [History] Metformin HCl [Glucophage] 1,000 mg PO BID 06/24/19 [History] Metoprolol Succinate [Toprol Xl] 100 mg PO DAILY 06/24/19 [History] Docusate Sodium [Colace] 100 mg PO BID 5 Days #10 capsule 07/01/19 [Rx] OxyCODONE Immed Rel [Roxicodone 5 MG] 5 mg PO Q6HR PRN 5 Days #20 tablet 07/01/19 [Rx] Polyethylene Glycol 3350 [MiraLAX] 17 gm PO BID 10 Days #20 powd.pack 07/04/19 [Rx] Allergies/Adverse Reactions: Allergy/AdvReac Type Severity Reaction Status Date / Time adhesive tape Allergy Rash Verified 06/24/19 14:33 lidocaine Allergy Rash Verified 06/24/19 14:33 Procaine [From Novocain] Allergy Rash Verified 06/24/19 14:33 Date of admission: 06/25/19 17:26 Primary care physician: PCP NONE Consults: 06/24/19 09:45 Consult to Occupational Therapy [CONS] Routine Comment: Evaluate, develop and implement POC Reason for Consult: Falls from severe peripheral neuropathy Does patient have active BEDREST order?: No Is patient medically & hemodynamically stable?: Yes 06/24/19 10:05 Consult to Neurology [CONS] Routine Consulting Provider: [facility] Reason for Consult: Cerivical radiculopathy, Severe peripheral neuropathy in diabetic. Call Completed: Yes 06/25/19 07:41 Consult to Orthopedic Surgery [CONS] Routine Consulting Provider: Orthopedics [facility] Reason for Consult: back pain with L2-L3 stenosis, c4-c5 stenosis Call Completed: Yes 06/26/19 08:59 Consult to Cardiology [CONS] Routine Comment: Consulting Provider: Cardiology [place] Reason for Consult: preop clearance for cervical fusion. Hx oc CAD s/p CABG. Abnormal EKG at baseline Call Completed: No 06/30/19 18:41 Consult to Occupational Therapy [CONS] Routine Comment: Evaluate, develop and implement POC Reason for Consult: Postoperative rehabilitation Does patient have active BEDREST order?: No Is patient medically & hemodynamically stable?: Yes Patient assessed for mobility or mobilized this visit?: No Consult to Physical Therapy [CONS] Routine Comment: Evaluate, develop and implement POC Reason for Consult: Postoperative rehabilitation Does patient have active BEDREST order?: No Is patient medically & hemodynamically stable?: Yes Patient assessed for mobility or mobilized this visit?: No Consult to Vehicle Operator Technician [CONS] Routine Reason for SW Consult: Postoperative rehabilitation Consult to Spine Navigator [CONS] [CONS] Routine - Constitutional Vitals: Temp Pulse Resp BP Pulse Ox 98.4 F 90 17 122/72 96 07/04/19 08:21 07/04/19 08:21 07/04/19 08:21 07/04/19 08:21 07/04/19 08:21 Exam: GENERAL: Mild distress. Alert and Oriented HEENT: EOMI, PERRLA MOUTH: Moist oral mucosa NECK:No JVD, Left neck dressing appears clean without discharge. CHEST AND LUNGS: Normal breath sounds, no wheezes or crackles HEART: S1 and S2 normal, no murmurs ABDOMEN: Soft, nontender, no organomegaly SKIN: Normal color, no rahses, no lesions EXTREMITIES: No deformity, no edema, no tenderness, no joint swelling or clubbing NEUROLOGICAL: CN II-XII intact. Strength is 4/5 in upper extremities and 4/5 lower extremities - Patient Status Disposition: Transfer Inpatient Rehab Fac Condition: Good Functional capacity at discharge: uses cane/walker Overall status at discharge: patient is back to baseline - Discharge Instructions Follow Up With: NONE,PCP [Primary Care Provider] - Nicola Crystal MD [Partnered Physician] - 07/09/19 ([facility] on 07/09) - Diet and Activity Activity: as per physical therapy Diet: diabetic diet
--- NOTE | 2019-07-04 08:50 | Physician Discharge Referral ---
ExtendedCare Referral Info Transfer To: rehab Provider in Charge after Transfer: PCP Institutional Level of Care: Skilled - Diagnosis (1) Cervical myelopathy Priority: Primary Status: Resolved (2) Diabetes mellitus Priority: Secondary Status: Chronic (3) Hypertension Priority: Secondary Status: Chronic (4) Osteoarthritis Priority: Secondary Status: Chronic (5) Peripheral neuropathy Priority: Secondary Status: Acute (6) Falls Priority: Secondary Status: Resolved (7) DVT prophylaxis Priority: Secondary Status: Acute (8) Preoperative clearance Priority: Secondary Status: Acute (9) CAD (coronary artery disease) Priority: Secondary Status: Acute Prognosis: Good Aware of Diagnosis: Patient Aware of Prognosis: Patient - Transfer Medications Prescriptions: Docusate Sodium [Colace] 100 mg PO BID 5 Days #10 capsule Prescription Printed Polyethylene Glycol 3350 [MiraLAX] 17 gm PO BID 10 Days #20 powd.pack Prescription Printed OxyCODONE Immed Rel [Roxicodone 5 MG] 5 mg PO Q6HR PRN 5 Days #20 tablet PRN Reason: Severe Pain Prescription Printed Home Medications: Aspirin [Lo-Dose Aspirin EC] 81 mg PO DAILY 06/23/19 [History] Calcium Carbonate [Calcium] 600 mg PO DAILY 06/23/19 [History] Insulin ASPART [Novolog Flexpen] 8 unit SQ TID 06/23/19 [History] Insulin Glargine,Hum.rec.anlog [Lantus Solostar] 50 unit SQ BID 06/23/19 [History] Levothyroxine Sodium [Levoxyl] 50 mcg PO DAILY 06/23/19 [History] Lisinopril/Hydrochlorothiazide [Lisinopril-Hctz 20-25 mg Tab] 1 tab PO DAILY 06/23/19 [History] Vitamin E 400 unit PO DAILY 06/23/19 [History] Atorvastatin [Lipitor] 40 mg PO QPM 06/24/19 [History] Cholecalciferol (Vitamin D3) [Dialyvite Vitamin D] 5,000 units PO DAILY 06/24/19 [History] Metformin HCl [Glucophage] 1,000 mg PO BID 06/24/19 [History] Metoprolol Succinate [Toprol Xl] 100 mg PO DAILY 06/24/19 [History] Docusate Sodium [Colace] 100 mg PO BID 5 Days #10 capsule 07/01/19 [Rx] OxyCODONE Immed Rel [Roxicodone 5 MG] 5 mg PO Q6HR PRN 5 Days #20 tablet 07/01/19 [Rx] Polyethylene Glycol 3350 [MiraLAX] 17 gm PO BID 10 Days #20 powd.pack 07/04/19 [Rx] Allergies/Adverse Reactions: Allergy/AdvReac Type Severity Reaction Status Date / Time adhesive tape Allergy Rash Verified 06/24/19 14:33 lidocaine Allergy Rash Verified 06/24/19 14:33 Procaine [From Novocain] Allergy Rash Verified 06/24/19 14:33 - Respiratory Orders Smoking Cessation: Smoking cessation has been advised. For more information, call the [place] Tobacco Quit Line at 3-032-CMCP-NOW. - Mobility Orders Ambulate - Rehabiliation Orders Rehab Potential: Good Rehab Orders: Evaluation for Physical Therapy Other: C collar with all ambulation Avoid excessive neck motion No lifting/pulling/pushing greater than 10 lbs - Treatments May check for fecal impaction rectally daily PRN, Fleet enema rectally every other day PRN cleansing purposes - Diet Orders Cardiac (diabetic) CERTIFICATION: I certify that the transfer of the above named patient to an Extended Care Facility is necessary for the continuing treatment of the diagnosis listed. The above information is true and accurate reflection of patient's current condition. Confidential - Redisclosure prohibited without a patient's written consent.
[2019-07-04] MEDS: Sennosides/Docusate Sodium TABLET PO SCH (09:35)
[2019-07-04] MEDS: *HR* OxyCODONE Immed Rel 5 MG TABLET PO PRN ×2 (09:35→20:01)
[2019-07-04] MEDS: Metoprolol 100 MG TABLET PO SCH (09:36)
[2019-07-04] MEDS: Aspirin Enteric Coated 81 MG Tablet PO SCH (09:36)
[2019-07-04] MEDS: Insulin LISPRO 300 UNITS/3 ML VIAL SQ SCH ×5 (09:43→17:35)
[2019-07-04] MEDS: Insulin DETEMIR 100 UNIT/ML X5UNITS SQ SCH (09:43)
[2019-07-04 13:02] VITALS: BP 129/77
[2019-07-04] MEDS ORDERED: MOM Conc 10 ML UD.LIQ PO SCH (15:00)
[2019-07-04] MEDS ORDERED: Insulin LISPRO 300 UNITS/3 ML VIAL SQ SCH (16:30)
[2019-07-04] MEDS ORDERED: Insulin DETEMIR 100 UNIT/ML X5UNITS SQ SCH (21:00)
--- NOTE | 2019-07-05 08:29 | Orthopedics Progress Note ---
Date of Encounter: 07/03/19 Time of Encounter: 09:00 - Assessment and Plan (1) Status post cervical spinal fusion Status: Acute (2) Cervical radiculopathy Status: Chronic (3) Cervical stenosis of spine Status: Chronic (4) Myelomalacia of cervical cord Status: Chronic Subjective Principal diagnosis: Leg weakness, difficulty with ambulation. Impaired dexterity Interval history: POD#2 s/p Anterior cervical decompression and fusion C4-C7 [Cervical stenosis, cervical myelopathy, myelomalacia cervical cord] 06/30/19 Patient seen at bedside. Patient states feeling stronger today and states was able to stand on the EZ stand today. States her "tailbone" doesn't hurt as intensely as prior to surgery. She relates that she is having soreness in her shoulders today - per patient believes it is from working with therapy. A&Ox3 Dressing and incision c/d/i No calf tenderness, erythema, or warmth. Sensation intact all extremities. Labwork, vitals, and medications reviewed. Pain control: Adequate Participating in therapy. All questions and concerns addressed. Educated on use of incentive spirometer, ambulation, and hydration. Patient educated on post-operative restrictions and care. Addressed: see above. Patient course and disposition discussed with Dr. Lugo D/C plan: awaiting acceptance - not appropriate for [place] in per report. Awaiting snf/ecf acceptance Objective Vital signs: Vital Signs Temp Pulse Resp BP Pulse Ox 07/04/19 17:00 98.2 F 91 17 129/77 97 07/04/19 13:00 97.7 F 75 16 129/77 99 Intake and Output 07/04/19 07/05/19 07/05/19 23:59 07:59 15:59 Intake Total 240 / 1050 Output Total 600 / 1550 Balance -360 / -500 Intake: Oral 240 / 1050 Output: Urine 200 / 200 Stool 400 / 400 Other: Meal Dinner Percent of Meal Consumed 90% Stool Size Large Stool Consistency liquid Stool Color Brown # Voids 1 # Bowel Movements 1 Blood Glucose* 264 - Labs CBC & BMP: 07/02/19 06:07 07/02/19 06:07 Labs: Abnormal lab results WBC 12.1 K/mcL (4.3-11.1) H D 07/01/19 04:59 Sodium 135 mEq/L (136-145) L 07/02/19 06:07 Chloride 97 mEq/L (98-107) L 07/02/19 06:07 Carbon Dioxide 31 mEq/L (23-29) H 07/02/19 06:07 BUN 41 mg/dL (8-23) H 06/30/19 03:59 BUN/Creatinine Ratio 28 (6-26) H 07/02/19 06:07 Glucose 260 mg/dL (70-105) H 07/02/19 06:07 POC Glucose 275 mg/dL (70-99) H 07/04/19 12:59 Calculated Osmolality 301 (280-300) H 06/30/19 03:59 Consult Discharge Plan - Plan Referrals: Milli Henley PAC [Physician Senior It Assistant] - 07/15/19 9:30 am Nicola Crystal MD [Partnered Physician] - 07/09/19 ([facility] on 07/09) Madeleine Galvez, [employer] [Advanced Practice Nurse] - 07/21/19 10:00 am Ric Lugo Jr, MD [Partnered Physician] - NONE,PCP [Primary Care Provider] - Prescriptions: Docusate Sodium [Colace] 100 mg PO BID 5 Days #10 capsule Prescription Printed Polyethylene Glycol 3350 [MiraLAX] 17 gm PO BID 10 Days #20 powd.pack Prescription Printed OxyCODONE Immed Rel [Roxicodone 5 MG] 5 mg PO Q6HR PRN 5 Days #20 tablet PRN Reason: Severe Pain Prescription Printed
== END 2019-07-04 20:13 | DRG 29 ==
LOC: 2ANU → SUATTDRO 04:06 → 3NENU 06-29 10:39
PROVIDERS: ADMIT Family Medicine; ATTEND Internal Medicine